=== PATIENT | female | born 1980 | race Caucasian/White ===

== ENCOUNTER 2018-06-30 22:58 | Emergency (ER) | payer OTHER ==
[~2018-06-30] VITALS: Ht 167.6 cm; Wt 68.2 kg
[2018-06-30 23:04] VITALS: TEMP 97.8
[2018-06-30] MEDS ORDERED: CYMBALTA 20MG20 MG PO (23:46)
[2018-07-01 00:20] VITALS: BP 140/99; PULSE 75
== END 2018-07-01 00:24 | disposition home or self-care (01) ==
LOC: COL.ER 22:58
DX: S43.401A Unspecified sprain of right shoulder joint, initial encounter (principal); W01.0XXA Fall on same level from slipping, tripping and stumbling without subsequent striking against object, initial encounter; Y92.009 Unspecified place in unspecified non-institutional (private) residence as the place of occurrence of the external cause
CPT/HCPCS: J1885

== ENCOUNTER 2018-10-21 03:22 | Emergency (ER) | payer OTHER ==
[~2018-10-21] VITALS: Ht 167.6 cm; Wt 77.3 kg
[~2018-10-21 03:22] MED LIST: CYMBALTA 20MG20 MG PO
[2018-10-21 03:25] VITALS: BP 163/103; PULSE 118; TEMP 97.5
[2018-10-21] MEDS ORDERED: VIIBRYD40 MG PO (03:45)
[2018-10-21] MEDS ORDERED: ADDERALL20 MG PO (03:45)
[2018-10-21 03:46] LABS: COLLECTION METHOD CLEAN CATCH
[2018-10-21 03:48] LABS: BASO % 0.5 % (0.0-2.0); EOS # 0.3 (0.0-0.7); EOS % 4.3 % (0-4.0); GRAN # 3.5 (1.4-6.5); HEMOGLOBIN 11.3 g/dl (12.5-16.0); LYMPH # 1.8 (1.2-3.4); LYMPH % 29.2 % (20.0-51.0); MEAN CELL VOLUME 91 fl (80.0-100.0); MEAN CORPUSCULAR HEMOGLOBIN 29 pg (27.0-31.0); MEAN CORPUSCULAR HGB CONC 31 g/dl (33.0-37.0); MEAN PLATELET VOLUME 10.5 fl (7.4-10.4); MONO # 0.5 (0.1-0.6); MONO % 8.7 % (1.7-9.3); PLATELET COUNT 301 K/mm3 (130-400); RED BLOOD COUNT 3.97 M/mm3 (4.10-5.30); REDCELL DISTRIBUTION WIDTH-CV 13.1 % (11.5-14.5)
[2018-10-21 03:59] LABS: MUCOUS Present /lpf; PH 5 (5-8); URINE APPEARANCE Hazy; URINE BACTERIA None Seen /hpf; URINE BILIRUBIN Negative (NEGATIVE); URINE BLOOD 3+ (NEGATIVE); URINE COLOR Yellow; URINE GLUCOSE Negative (NEGATIVE); URINE KETONE Trace (NEGATIVE); URINE LEUKOCYTE ESTERASE Negative (NEGATIVE); URINE NITRATE Negative (NEGATIVE); URINE PROTEIN(semi-quant) 2+ (NEGATIVE); URINE RBC >50 /hpf; URINE UROBILINOGEN Negative (NEGATIVE)
[2018-10-21 04:06] LABS: ALBUMIN 3.7 gm/dL (3.5-5.0); BILIRUBIN,TOTAL 0.3 mg/dL (0.0-1.0); CALCIUM 8.8 mg/dL (8.4-10.2); CREATININE, serum 0.68 (0.52-1.25); POTASSIUM 3.7 mmol/L (3.4-5.0); TOTAL PROTEIN 6.8 gm/dL (6.4-8.2)
== END 2018-10-21 09:56 | disposition home or self-care (01) ==
LOC: COL.ER 03:22
PROVIDERS: Emergency Medicine
DX: R10.11 Right upper quadrant pain (principal); Z98.84 Bariatric surgery status; Z98.890 Other specified postprocedural states
CPT/HCPCS: J1170; J1885; J2550; J7030; Q9967

== ENCOUNTER 2019-07-08 10:03 | Inpatient (IN) | payer OTHER ==
[2019-07-08] VITALS (7 sets, daily range): BP systolic 111–134; BP diastolic 86–98; PULSE 82–103; TEMP 97.5–98.2
[~2019-07-08] VITALS: Ht 167.6 cm; Wt 82.9 kg
[~2019-07-08 10:03] MED LIST changes: +ADDERALL20 MG PO; +VIIBRYD40 MG PO
[2019-07-08 10:54] LABS: ALANINE AMINOTRANSFERASE 46 U/L (9-52); ALBUMIN 3.1 gm/dL (3.5-5.0); ALKALINE PHOSPHATASE 79 U/L (50-136); ANION GAP 7 mmol/L (7-16); AST,SGOT 39 U/L (15-37); BILIRUBIN,TOTAL 0.3 mg/dL (0.0-1.0); BLOOD UREA NITROGEN 25 mg/dL (7-17); CALCIUM 7.7 mg/dL (8.4-10.2); CARBON DIOXIDE 28 mmol/L (22-30); CHLORIDE 103 mmol/L (98-107); CREATININE, serum 0.43 (0.52-1.25); GLUCOSE 135 mg/dL (74-106); LIPASE 151 U/L (23-300); POTASSIUM 3.2 mmol/L (3.4-5.0); SODIUM 138 mmol/L (137-145); TOTAL PROTEIN 5.4 gm/dL (6.4-8.2)
[2019-07-08 10:55] LABS: BASO # 0.1 (0.0-0.2); BASO % 0.5 % (0.0-2.0); EOS # 0.4 (0.0-0.7); EOS % 3.4 % (0-4.0); GRAN % 73.4 % (42.2-75.2); HEMATOCRIT 24.3 % (37.0-47.0); HEMOGLOBIN 7.4 g/dl (12.5-16.0); LYMPH # 1.9 (1.2-3.4); MEAN CELL VOLUME 85 fl (80.0-100.0); MEAN CORPUSCULAR HEMOGLOBIN 26 pg (27.0-31.0); MEAN CORPUSCULAR HGB CONC 31 g/dl (33.0-37.0); MEAN PLATELET VOLUME 10.6 fl (7.4-10.4); MONO # 0.6 (0.1-0.6); MONO % 5.3 % (1.7-9.3); PLATELET COUNT 364 K/mm3 (130-400); RED BLOOD COUNT 2.85 M/mm3 (4.10-5.30); REDCELL DISTRIBUTION WIDTH-CV 22.5 % (11.5-14.5)
[2019-07-08 11:06] LABS: TROPONIN-I < 0.012 ng/mL (0.000-0.035)
[2019-07-08] MEDS ORDERED: CYMBALTA 60MG60 MG PO (12:35)
[2019-07-08] MEDS ORDERED: PROTONIX 40MG T40 MG PO (12:36)
[2019-07-08 13:51] LABS: COLLECTION METHOD CLEAN CATCH
[2019-07-08 13:58] LABS: PH 7 (5-8); SQUAMOUS EPITHELIAL 0-2 /hpf; URINE APPEARANCE Clear; URINE BACTERIA None Seen /hpf; URINE BILIRUBIN Negative (NEGATIVE); URINE BLOOD 1+ (NEGATIVE); URINE COLOR Colorless; URINE GLUCOSE Negative (NEGATIVE); URINE KETONE 1+ (NEGATIVE); URINE LEUKOCYTE ESTERASE Negative (NEGATIVE); URINE NITRATE Negative (NEGATIVE); URINE PROTEIN(semi-quant) Negative (NEGATIVE); URINE UROBILINOGEN Negative (NEGATIVE)
--- NOTE | 2019-07-08 14:04 | NUR ---
Report recieved from shoe repairer apprentice Paula. MD Artem notified that pt had bleeding jejunum ulcer with 3 clips, pt orthostatic dizziness, and severe abdominal pain. Hospitalist team will round on pt as soon as they are able
--- NOTE | 2019-07-08 14:15 | NUR ---
Pt here with Endo RNs, pt AAOx4, transfered self from cart to IMCU bed without difficulty, VSS, automated vitals q15, pt rating abdominal pain as "much better than before", pt denied needing pain medication at this time. 1440 NESTOR Guan in room assessing pt
[2019-07-08 16:06] LABS: HEMATOCRIT 24.5 % (37.0-47.0); HEMOGLOBIN 7.7 g/dl (12.5-16.0)
[2019-07-09] VITALS (7 sets, daily range): BP systolic 105–134; BP diastolic 70–88; PULSE 76–96; TEMP 97.9–98.7
[2019-07-09 06:42] LABS: BASO % 0.4 % (0.0-2.0); EOS # 0.6 (0.0-0.7); EOS % 7.5 % (0-4.0); GRAN # 4.5 (1.4-6.5); GRAN % 60.9 % (42.2-75.2); MEAN CORPUSCULAR HGB CONC 30 g/dl (33.0-37.0); MEAN PLATELET VOLUME 10.6 fl (7.4-10.4); MONO # 0.3 (0.1-0.6); MONO % 3.9 % (1.7-9.3); RED BLOOD COUNT 2.71 M/mm3 (4.10-5.30); REDCELL DISTRIBUTION WIDTH-CV 21.3 % (11.5-14.5)
[2019-07-09 06:45] LABS: HEMATOCRIT 24.8 % (37.0-47.0); HEMOGLOBIN 7.5 g/dl (12.5-16.0); MEAN CELL VOLUME 92 fl (80.0-100.0); MEAN CORPUSCULAR HEMOGLOBIN 28 pg (27.0-31.0)
[2019-07-09 06:46] LABS: PLATELET COUNT 238 K/mm3 (130-400)
[2019-07-09 06:55] LABS: CALCIUM 7.6 mg/dL (8.4-10.2); CREATININE, serum 0.45 (0.52-1.25); POTASSIUM 3.7 mmol/L (3.4-5.0)
--- NOTE | 2019-07-09 08:00 | NUR ---
Shift assessment complete at this time. Plan of care reviewed at bedside with patient. Additional time taken to address any other needs or concerns. Vitals stable at this time. Pt reports moderate abdominal pain that is cramp-like in nature and requests the next dose of analgesic when it is available. Bed in low position, call light within reach, will continue to monitor.
--- NOTE | 2019-07-09 17:00 | NUR ---
Pt reports pain to lower abd increased to 6 out of 10 and radiating around to left flank. PRN pain medication administered, 1 tab at this time then pt will want a second tab when family arrives. IV removed from left hand per pt's request. Saline lock IV to right AC without s/s of complications. No further needs reported. Call light in reach.
--- NOTE | 2019-07-09 19:45 | NUR ---
Patient assessed at this time. Alert and oriented x 4, and able to make needs known. Denies having pain and discomfort at this time. Denies SOB and dyspnea. LS CTA. Respirations even and unlabored. HRR. Capillary refill less than 3 seconds. Non-tenting skin turgor. BSAx4. Abdomen soft and non-tender. Reports still having dark bloody stools, but decreasing. Denies pain and discomfort with urination. No edema. Voices no questions, needs, or concerns at this time. Resting in bed with call light within reach.
[2019-07-10] VITALS (14 sets, daily range): BP systolic 120–142; BP diastolic 53–98; PULSE 86–105; TEMP 97.9–98.5
--- NOTE | 2019-07-10 05:02 | NUR ---
Patient has had an uneventful night. Has denied having pain and discomfort. Voices no questions, needs, or concerns at this time. Resting in bed with call light within reach.
--- NOTE | 2019-07-10 05:56 | NUR ---
Patient reports pain at a 5 at this time, but denies wanting any pain medication. Voices no questions, needs, or concerns at this time.
[2019-07-10 06:26] LABS: BASO % 0.5 % (0.0-2.0); EOS # 0.5 (0.0-0.7); EOS % 8.4 % (0-4.0); GRAN % 68.4 % (42.2-75.2); LYMPH % 17.9 % (20.0-51.0); MEAN CELL VOLUME 90 fl (80.0-100.0); MEAN CORPUSCULAR HGB CONC 31 g/dl (33.0-37.0); MEAN PLATELET VOLUME 10.6 fl (7.4-10.4); MONO # 0.3 (0.1-0.6); MONO % 4.5 % (1.7-9.3); PLATELET COUNT 214 K/mm3 (130-400); RED BLOOD COUNT 2.31 M/mm3 (4.10-5.30); REDCELL DISTRIBUTION WIDTH-CV 21.6 % (11.5-14.5)
[2019-07-10 06:37] LABS: CALCIUM 7.5 mg/dL (8.4-10.2); CREATININE, serum 0.39 (0.52-1.25); MAGNESIUM 1.7 mg/dL (1.6-2.3); POTASSIUM 3.5 mmol/L (3.4-5.0)
[2019-07-10 06:41] LABS: HEMATOCRIT 20.8 % (37.0-47.0); HEMOGLOBIN 6.4 g/dl (12.5-16.0); MEAN CORPUSCULAR HEMOGLOBIN 28 pg (27.0-31.0)
--- NOTE | 2019-07-10 07:20 | NUR ---
Assessment charted. Patient A&Ox4. Reporting in abdomen 10/26. Pain medication requested. VSS. IV CDI. No further needs expressed from patient. Call light within reach
--- NOTE | 2019-07-10 09:33 | NUR ---
Transfusion started. VSS. VS monitored at bedside. IV CDI. No further needs expressed from patient. Call light within reach. Nurse at the bedside
--- NOTE | 2019-07-10 12:09 | NUR ---
Transfused 1 unit. VSS. IV CDI. Patient tolerated transfusion well. No further needs expressed from patient. 2nd unit transfusing. Nurse at the bedside. Call light within reach
--- NOTE | 2019-07-10 13:07 | NUR ---
Plan is to return home with spouse Akhil and thier children. Patient reports that she wants to go home after care. Patient reports that she has a PCP on [place] but it recently change but does not know who. Patient reports taht she obtains medications at [facility]. Patient denies having POA. Unknown on additonals. SE education on supports and services need.
--- NOTE | 2019-07-10 14:43 | NUR ---
Transfusion complete. Patient tolerated well. VSS. VS monitored at bedside. IV CDI. No further needs expressed from patient. Call light within reach
[2019-07-10] MEDS ORDERED: PROTONIX40 MG/Pack PO (14:52)
[2019-07-10] MEDS ORDERED: SLOW FE142 MG PO (14:52)
[2019-07-10 17:42] LABS: HEMATOCRIT 28.3 % (37.0-47.0); HEMOGLOBIN 9.3 g/dl (12.5-16.0)
--- NOTE | 2019-07-10 18:31 | NUR ---
Patient received 2 units of blood and tolerated well. Has been emotional and crying in room, wanting to go home. VSS. IV CDI. Reported pain in lower abdomen, pain medication given when requested. Patient reporting pain with eating, requested a full liquid diet. Patient scheduled for proceudre in the morning 07/11. Patient verbalized an understanding. No further needs expressed from patient. Call light within reach
--- NOTE | 2019-07-10 20:49 | NUR ---
Received report from LILIANA Wong. Assessment complete. PT laying in bed resting, states feeling tired. Alert and oriented. Easily aroused. Meds adminsitered. C/O pain to abdomen, rate 5/10, pain is tolerable. INT to RAC intact, flushed, dressing CDI. Dinner tray remains at bedside, pt states she will continue to work on it throughout the night before midnight. POC discussed with pt, pt understands NPO status after midnight. Refused SCD.
[2019-07-11] VITALS (9 sets, daily range): BP systolic 132–153; BP diastolic 98–117; PULSE 87–96; TEMP 97.9–98.6
--- NOTE | 2019-07-11 06:04 | NUR ---
Pt made no complaints during this shift. Pt in clean gown, preop checklist completed, consent signed, fluids started, pt states no need to void, has been NPO since midnight. Needs met. Call light within reach.
[2019-07-11 06:42] LABS: HEMOGLOBIN 9.5 g/dl (12.5-16.0)
--- NOTE | 2019-07-11 06:54 | NUR ---
Report given to LILIANA Elder.
[2019-07-11 06:59] LABS: CALCIUM 7.9 mg/dL (8.4-10.2); CREATININE, serum 0.38 (0.52-1.25); PHOSPHOROUS 3.1 mg/dL (2.5-4.5); POTASSIUM 3.6 mmol/L (3.4-5.0)
[2019-07-11 07:18] LABS: IRON,SERUM 21 ug/dL (35-150)
[2019-07-11 07:27] LABS: TOTAL IRON BINDING CAPACITY 390 ug/dL (265-497)
--- NOTE | 2019-07-11 08:15 | NUR ---
PATIENT RETURNS FROM EGD. VITALS SET UP. SHE DENIES PAIN. WATER IS PROVIDED.
[2019-07-11] MEDS ORDERED: NORVASC 5MG5 MG/TAB PO (09:11)
--- NOTE | 2019-07-11 09:45 | NUR ---
PATIENT DISCHARGED TO HOME WITH PAPERWORK. SHE DENIES ANY QUESTIONS. NOTHING IN LOCK UP. HERE TO TAKE HER HOME. DISCHARGE VIA PEDIS.
== END 2019-07-11 09:45 | disposition home or self-care (01) | DRG 378 ==
LOC: COL.ER 10:03 → MEDICAL 11:22 → IMCU 11:22 → MEDICAL 07-09 11:47
PROVIDERS: Emergency Medicine; Family Medicine; Internal Medicine Gastroenterology; Physician Assistant; ADMIT Internal Medicine
PROC: 3E0G8GC Introduction of Other Therapeutic Substance into Upper GI, Via Natural or Artificial Opening Endoscopic (ICD-10-PCS; 2019-07-08)
PROC: 0W3P8ZZ Control Bleeding in Gastrointestinal Tract, Via Natural or Artificial Opening Endoscopic (ICD-10-PCS; principal; 2019-07-08 13:30)
DX: K28.0 Acute gastrojejunal ulcer with hemorrhage (principal); D62 Acute posthemorrhagic anemia; N20.1 Calculus of ureter; F32.9 Major depressive disorder, single episode, unspecified; F90.9 Attention-deficit hyperactivity disorder, unspecified type; E87.6 Hypokalemia; E83.42 Hypomagnesemia; Z98.84 Bariatric surgery status
CPT/HCPCS: 99223-AI; 99232-AI; 99239; A4216; C9113; J0171; J0696; J2250; J2270; J2405; J2704; J3010; J3475; J3480; J7030; P9016; Q9967

== ENCOUNTER 2019-07-13 07:06 | Day surgery (SDC) | payer OTHER ==
[~2019-07-13] VITALS: Ht 167.6 cm; Wt 76.3 kg
[~2019-07-13 07:06] MED LIST changes: +CYMBALTA 60MG60 MG PO; +NORVASC 5MG5 MG/TAB PO; +PROTONIX 40MG T40 MG PO; +PROTONIX40 MG/Pack PO; +SLOW FE142 MG PO
[2019-07-13] MEDS ORDERED: PROTONIX40 MG/Pack PO (07:28)
[2019-07-13] MEDS ORDERED: NORVASC 5MG5 MG/TAB PO (07:28)
[2019-07-13 07:36] VITALS: BP 132/86; PULSE 103; TEMP 97.9
[2019-07-13 07:50] LABS: HEMATOCRIT 34.6 % (37.0-47.0); HEMOGLOBIN 11.5 g/dl (12.5-16.0)
[2019-07-13 10:30] VITALS: BP 122/79; PULSE 104; TEMP 98
--- NOTE | 2019-07-13 10:30 | NUR ---
The patient arrived back to [facility] from the recovery room at this time. The patient appears alert and oriented and denies any pain or nausea at this time. The patient requests to try some ice water at this time. Post operative vital signs were started at this time. Call light is within reach. The patient does not have anyone here with her at this time, she is going to text a friend when she is ready for discharge.
[2019-07-13 10:45] VITALS: BP 127/83; PULSE 104
--- NOTE | 2019-07-13 10:45 | NUR ---
The patient appears to be tolerating the water well and denies wanting anything further to eat or drink at this time. Vital signs appear stable. Will continue to monitor the patient.
[2019-07-13 11:00] VITALS: BP 129/84; PULSE 98
--- NOTE | 2019-07-13 11:15 | NUR ---
Discharge instructions were reviewed with the patient at this time. She verbalized understanding and has no questions for the nurse at this time. The patient's IV to her right forearm was removed and a pressure dressing was applied to the site. The patient is dressed and ready to be escorted out.
--- NOTE | 2019-07-13 11:23 | NUR ---
The patient was escorted out via wheelchair to a private vehicle by LILIANA Williamson. The patient's belongings and discharge paperwork were sent with her. The patient's friend, Kim, is present to drive her home.
== END 2019-07-13 11:23 | disposition home or self-care (01) ==
LOC: SDCO 07:06
PROVIDERS: Nurse Anesthetist, Certified Registered
DX: N20.1 Calculus of ureter (principal); I10 Essential (primary) hypertension; F32.9 Major depressive disorder, single episode, unspecified; F90.9 Attention-deficit hyperactivity disorder, unspecified type; D64.9 Anemia, unspecified; Z88.1 Allergy status to other antibiotic agents; Z79.899 Other long term (current) drug therapy
CPT/HCPCS: C1769; C2617; J0690; J1100; J2405; J2704; J3010; J7120; Q9967

== ENCOUNTER 2019-11-21 14:38 | Inpatient (IN) | payer OTHER ==
[~2019-11-21] VITALS: Ht 167.6 cm; Wt 76.1 kg
[2019-11-21 16:12] LABS: POTASSIUM 3.2 mmol/L (3.4-5.0)
[2019-11-21 16:15] LABS: ALANINE AMINOTRANSFERASE 308 U/L (4-34); ALBUMIN 4.1 gm/dL (3.5-5.0); ALKALINE PHOSPHATASE 191 U/L (50-136); ANION GAP 15 mmol/L (7-16); AST,SGOT 717 U/L (15-37); BILIRUBIN,TOTAL 2.2 mg/dL (0.0-1.0); BLOOD UREA NITROGEN 15 mg/dL (7-17); CALCIUM 8.4 mg/dL (8.4-10.2); CARBON DIOXIDE 21 mmol/L (22-30); CHLORIDE 100 mmol/L (98-107); CREATININE, serum 0.65 (0.52-1.25); GLUCOSE 88 mg/dL (74-106); LIPASE 545 U/L (23-300); SODIUM 136 mmol/L (137-145); TOTAL PROTEIN 7.2 gm/dL (6.4-8.2)
[2019-11-21 16:19] LABS: C-REACTIVE PROTEIN < 0.5 mg/dL (0.0-0.9)
[2019-11-21 16:29] LABS: BASO % 1.1 % (0.0-2.0); EOS # 0.1 (0.0-0.7); EOS % 1.6 % (0-4.0); GRAN # 2.4 (1.4-6.5); GRAN % 63.3 % (42.2-75.2); LYMPH # 0.9 (1.2-3.4); LYMPH % 24.8 % (20.0-51.0); MEAN CELL VOLUME 90 fl (80.0-100.0); MEAN CORPUSCULAR HGB CONC 32 g/dl (33.0-37.0); MEAN PLATELET VOLUME 11.1 fl (7.4-10.4); MONO # 0.3 (0.1-0.6); MONO % 8.4 % (1.7-9.3); PLATELET COUNT 195 K/mm3 (130-400); RED BLOOD COUNT 2.89 M/mm3 (4.10-5.30); REDCELL DISTRIBUTION WIDTH-CV 22.5 % (11.5-14.5)
[2019-11-21 16:36] LABS: HEMATOCRIT 25.9 % (37.0-47.0); HEMOGLOBIN 8.3 g/dl (12.5-16.0); MEAN CORPUSCULAR HEMOGLOBIN 29 pg (27.0-31.0)
[2019-11-21 20:12] VITALS: BP 120/62; PULSE 102; TEMP 98.8
[2019-11-21 20:16] VITALS: BP 120/62; PULSE 102; TEMP 98.8
--- NOTE | 2019-11-21 20:35 | NUR ---
Pt. arrived to the floor via wheelchair. Pt. is A&OX3, assessment complete.IV to lt. forearm patent, IV fluids infusing per orders. Pt. rates pain at a 5 on pain scale to abd. Will give pain meds per orders. Pt. denies further needs, call light within reach.
[2019-11-21 20:41] LABS: INR 1.3 (0.8-3.0); PROTHROMBIN TIME 14.1 SECONDS (9.7-12.8)
[2019-11-21 23:12] VITALS: BP 132/96; PULSE 113; TEMP 98.3
[2019-11-21 23:42] LABS: HEMATOCRIT 24.1 % (37.0-47.0); HEMOGLOBIN 7.7 g/dl (12.5-16.0)
[2019-11-22] VITALS (10 sets, daily range): BP systolic 114–132; BP diastolic 70–89; PULSE 77–106; TEMP 97.5–99.1
[2019-11-22 04:24] LABS: TRICYCLIC ANTIDEPRESS URINE NEGATIVE
--- NOTE | 2019-11-22 07:00 | NUR ---
PATIENT VERY DROWSY AND DID NOT EASILY AROUSE. PATIENT WAS GIVEN ATIVAN BY LEHR STRIPPER FROM DETOX PROTOCOL. PATIENT HAS A HX OF ALCOHOL ABUSE AND INCREASED DEPRESSION. SEE PSYCH CONSULT. VSS. TELE INPLACE. HEAD TO TOE ASSESSMENT COMPLETE. PATIENT SLEPT THROUGH ASSESSMENT. PATIENT WILL REQUIRE MORE IV POTASSIUM FOR A SERUM K+ OF 3.5 WHICH IS UP FROM 3.2. PATIENT IS NPO FOR EGD THIS AM.
[2019-11-22 07:14] LABS: EOS # 0.1 (0.0-0.7); EOS % 4.6 % (0-4.0); GRAN # 1.6 (1.4-6.5); GRAN % 53.5 % (42.2-75.2); LYMPH % 32.6 % (20.0-51.0); MEAN CELL VOLUME 93 fl (80.0-100.0); MEAN CORPUSCULAR HGB CONC 30 g/dl (33.0-37.0); MEAN PLATELET VOLUME 11.1 fl (7.4-10.4); MONO # 0.2 (0.1-0.6); MONO % 7.6 % (1.7-9.3); PLATELET COUNT 179 K/mm3 (130-400); RED BLOOD COUNT 2.66 M/mm3 (4.10-5.30); REDCELL DISTRIBUTION WIDTH-CV 23.2 % (11.5-14.5)
[2019-11-22 07:24] LABS: HEMATOCRIT 24.7 % (37.0-47.0); HEMOGLOBIN 7.5 g/dl (12.5-16.0); MEAN CORPUSCULAR HEMOGLOBIN 28 pg (27.0-31.0)
[2019-11-22 07:30] LABS: ALBUMIN 3.3 gm/dL (3.5-5.0); BILIRUBIN,TOTAL 1.7 mg/dL (0.0-1.0); CALCIUM 7.1 mg/dL (8.4-10.2); CREATININE, serum 0.59 (0.52-1.25); MAGNESIUM 1.3 mg/dL (1.6-2.3); POTASSIUM 3.5 mmol/L (3.4-5.0)
--- NOTE | 2019-11-22 08:45 | NUR ---
AT BEDSIDE. PATIENT NOW EASILY AROUSED BUT IS SLEEPY. CONSENT SIGNED AND ON CHART.
--- NOTE | 2019-11-22 10:30 | NUR ---
PATIENT GOING DOWN TO ENDO
--- NOTE | 2019-11-22 11:20 | NUR ---
PATIENT BACK IN ROOM 323 POST OP EGD. ORIENTED BUT DROWSY. VSS. NO C/O PAIN. PATIENT RESTING
--- NOTE | 2019-11-22 12:30 | NUR ---
AT BEDSIDE TO EXPLAIN EGD FINDING.
--- NOTE | 2019-11-22 14:18 | NUR ---
Comfort Station Supervisor met with patient to discuss discharge planning. Patient lives in [place] with her Akhil (ph#[phone]) and her two children. Patient receives primary care at [facility]. Patient obtains medications from [facility] with no difficulties. Patient does not use any DME and reports independence with ADLS. Patient plans to return home at discharge. Patient does not have Advance Directives but was interested in obtaining the form for DPOA-HC. SW provided. No needs identified at this time.
--- NOTE | 2019-11-22 16:00 | NUR ---
PATIENT UP MOVING AROUND IN ROOM. HR ON TELE IN THE 120-130'S WITH ACTIVITY. PATIENT C/O FEELING ANXIOUS. NOTED HAND TREMORS. GAVE ATIVAN PER DETOX PROTOCOL. PATIENT RESTING IN BED.
[2019-11-22 17:44] LABS: HEMATOCRIT 24.7 % (37.0-47.0); HEMOGLOBIN 7.7 g/dl (12.5-16.0)
--- NOTE | 2019-11-22 21:15 | NUR ---
PT SCORES 5 ON DETOX SCALE, ATIVAN 1MG PO GIVEN NOW. HAS SLIGHT TREMOR, MILD NAUSEA AND TACHYCARDIA. HAS HAD MOD SOFT STOOL. IVF CONNECTED AT 125CC/HR TO LEFT FOREARM. VOIDING WELL. IS ALERT AND ORIENTED. TAKES HS MEDS NOW.
[2019-11-23] VITALS (10 sets, daily range): BP systolic 112–141; BP diastolic 72–103; PULSE 64–115; TEMP 97.8–98.9
--- NOTE | 2019-11-23 00:53 | NUR ---
MEDICATED WITH ATIVAN 1MG PO FOR DETOX SCORE 4. RESTING IN BED. UP INDEPENDENTLY IN ROOM, VOIDING WITHOUT PROBLEM.
--- NOTE | 2019-11-23 04:00 | NUR ---
PT RESTING WELL, SCORES 2 ON DETOX SCALE AT THIS TIME.
[2019-11-23 07:38] LABS: EOS # 0.1 (0.0-0.7); EOS % 3.7 % (0-4.0); GRAN # 2.1 (1.4-6.5); GRAN % 71.6 % (42.2-75.2); LYMPH # 0.5 (1.2-3.4); MEAN CELL VOLUME 95 fl (80.0-100.0); MEAN CORPUSCULAR HGB CONC 32 g/dl (33.0-37.0); MEAN PLATELET VOLUME 10.8 fl (7.4-10.4); MONO # 0.2 (0.1-0.6); MONO % 5.4 % (1.7-9.3); PLATELET COUNT 185 K/mm3 (130-400); RED BLOOD COUNT 2.54 M/mm3 (4.10-5.30); REDCELL DISTRIBUTION WIDTH-CV 23.7 % (11.5-14.5)
[2019-11-23 07:43] LABS: HEMATOCRIT 24.1 % (37.0-47.0); HEMOGLOBIN 7.6 g/dl (12.5-16.0); MEAN CORPUSCULAR HEMOGLOBIN 30 pg (27.0-31.0)
[2019-11-23 07:50] LABS: CALCIUM 6.9 mg/dL (8.4-10.2); CREATININE, serum 0.41 (0.52-1.25); POTASSIUM 3.5 mmol/L (3.4-5.0)
[2019-11-23] MEDS ORDERED: CYMBALTA 30MG30 MG PO ×2 (09:05)
[2019-11-23] MEDS ORDERED: EFFEXOR XR75 MG/CAP PO ×2 (09:08)
[2019-11-23] MEDS ORDERED: EFFEXOR-XR150 MG PO (09:09)
[2019-11-23] MEDS ORDERED: ATARAX50 MG PO (09:09)
[2019-11-23] MEDS ORDERED: ATARAX 25MG25 MG/TAB PO (09:10)
[2019-11-23] MEDS ORDERED: FOLIC ACID 11 MG/TA1 PO (09:12)
[2019-11-23] MEDS ORDERED: THIAMINE 1100 MG/TAB PO (09:12)
[2019-11-23] MEDS ORDERED: DUO-KAPS1 CAP PO (09:13)
[2019-11-23] MEDS ORDERED: PROTONIX40 MG/Pack PO (09:19)
[2019-11-23] MEDS ORDERED: LIBRIUM 25M25 MG/CAP PO ×2 (09:37)
--- NOTE | 2019-11-23 16:28 | NUR ---
Travel Service Consultant met with patient to provide and review local resources for alcohol abuse. Patient was interested in setting up an appointment at [facility] for outpatient counseling. SW contacted [facility] and left a message for the patient coordinator. SW will continue to follow.
--- NOTE | 2019-11-23 18:53 | NUR ---
REPORT TO ELVIE FORD.
--- NOTE | 2019-11-23 20:45 | NUR ---
Pt. laying in bed. Pt. is A&OX3, assessment complete. IV to lt. forearm patent, IV fluids infusing per orders. Pt. scored a 5 on Detox protocol, will give ativan per orders. Pt. denies pain or other needs, call light within reach.
[2019-11-24 04:39] VITALS: BP 136/95; PULSE 116; TEMP 98.3
--- NOTE | 2019-11-24 07:40 | NUR ---
Sitting up in bed. Telemetry had called as patient heart rate was elevated in the 160's. Patient had been up in halls ambulating with PT. Patient says that her heart rate goes up with activity and she is claustrophobic and having the mask on trying to walk is making her anxious. Patient denies pain. Denies needs at this time.
[2019-11-24 07:43] VITALS: BP 135/100; PULSE 119; TEMP 99.5
[2019-11-24 08:12] VITALS: BP 146/105; PULSE 114; TEMP 98.5
[2019-11-24 09:40] VITALS: BP 127/88; PULSE 116; TEMP 98.4
--- NOTE | 2019-11-24 09:48 | NUR ---
Sitting up in bed with eyes closed. Opens eyes when spoken to. Denies pain or any concerns at this time. Is hoping to go home today.
[2019-11-24 10:01] VITALS: BP 142/105; PULSE 117; TEMP 98.4
[2019-11-24 10:06] LABS: ALBUMIN 3.7 gm/dL (3.5-5.0); BILIRUBIN,TOTAL 2.1 mg/dL (0.0-1.0); CALCIUM 7.9 mg/dL (8.4-10.2); CREATININE, serum 0.48 (0.52-1.25); POTASSIUM 3.6 mmol/L (3.4-5.0); TOTAL PROTEIN 6.9 gm/dL (6.4-8.2)
[2019-11-24 11:23] VITALS: BP 128/97; PULSE 115; TEMP 99.1
--- NOTE | 2019-11-24 12:08 | NUR ---
Reviewed discharge instructions with the patient. Denies questions. Patient signs all discharge paperwork. Discharge packet provided to the patient. Patient's spouse here to pick her up. Will assist patient out to POV via wheelchair at this time.
--- NOTE | 2019-11-24 12:47 | NUR ---
Meterman attended clinical rounds with the team and patient states she is ready to go home today. Patient is still interested in getting connected with [facility] and provided her phone number and email to THUY to provide to [facility]. THUY contacted Anahi, Clinical Locomotive Firer/Fireman and gave referral along with contact information. Anahi advised she will be contacting patient to set up appointment. No additional needs at this time.
== END 2019-11-24 12:12 | disposition home or self-care (01) | DRG 378 ==
LOC: COL.ER 14:38 → SURG 18:24
PROVIDERS: Emergency Medicine; Internal Medicine; Internal Medicine Gastroenterology; Physician Assistant; Student in an Organized Health Care Education/Training Program; ADMIT Hospitalist
PROC: 0DJ08ZZ Inspection of Upper Intestinal Tract, Via Natural or Artificial Opening Endoscopic (ICD-10-PCS; principal; 2019-11-22 10:00)
DX: K29.21 Alcoholic gastritis with bleeding (principal); F10.94 Alcohol use, unspecified with alcohol-induced mood disorder; E87.6 Hypokalemia; E83.42 Hypomagnesemia; K28.4 Chronic or unspecified gastrojejunal ulcer with hemorrhage; F41.9 Anxiety disorder, unspecified; F32.9 Major depressive disorder, single episode, unspecified; F90.9 Attention-deficit hyperactivity disorder, unspecified type; I10 Essential (primary) hypertension; F41.0 Panic disorder [episodic paroxysmal anxiety]; D50.0 Iron deficiency anemia secondary to blood loss (chronic); G47.00 Insomnia, unspecified; Z87.11 Personal history of peptic ulcer disease; Z98.84 Bariatric surgery status
CPT/HCPCS: 99222-AI; 99223-AI; 99232-AI; 99233-AI; 99239; C9113; J2060; J2270; J2405; J2704; J2916; J3475; J3480; J7030; Q9967

== ENCOUNTER → 2019-12-14 | Outpatient (CLI) | payer OTHER ==
[~2019-12-14] MED LIST changes: +ATARAX 25MG25 MG/TAB PO; +ATARAX50 MG PO; +CYMBALTA 30MG30 MG PO; +DUO-KAPS1 CAP PO; +EFFEXOR XR75 MG/CAP PO; +EFFEXOR-XR150 MG PO; +FOLIC ACID 11 MG/TA1 PO; +LIBRIUM 25M25 MG/CAP PO; +THIAMINE 1100 MG/TAB PO
== END ==
LOC: BHSO 12:56
DX: F33.1 Major depressive disorder, recurrent, moderate (principal)

== ENCOUNTER 2019-12-20 08:13 | Inpatient (IN) | payer OTHER ==
[~2019-12-20] VITALS: Ht 167.6 cm; Wt 75.5 kg
[2019-12-20] VITALS (312 sets, daily range): BP systolic 94–127; BP diastolic 58–98; PULSE 82–115; TEMP 97.2–99.6; O2SAT 77–100
[2019-12-20 09:03] LABS: MEAN CELL VOLUME 94 fl (80.0-100.0); MEAN CORPUSCULAR HGB CONC 33 g/dl (33.0-37.0); MEAN PLATELET VOLUME 11.6 fl (7.4-10.4); PLATELET COUNT 135 K/mm3 (130-400); RED BLOOD COUNT 2.55 M/mm3 (4.10-5.30); REDCELL DISTRIBUTION WIDTH-CV 19.9 % (11.5-14.5)
[2019-12-20 09:06] LABS: HEMOGLOBIN 7.9 g/dl (12.5-16.0); MEAN CORPUSCULAR HEMOGLOBIN 31 pg (27.0-31.0)
[2019-12-20 09:24] LABS: ALBUMIN 2.9 gm/dL (3.5-5.0); BILIRUBIN,TOTAL 5.2 mg/dL (0.0-1.0); CALCIUM 7.7 mg/dL (8.4-10.2); CREATININE, serum 0.57 (0.52-1.25); POTASSIUM 3.6 mmol/L (3.4-5.0); TOTAL PROTEIN 5.9 gm/dL (6.4-8.2)
[2019-12-20 10:04] LABS: BAND 4 % (0-10); LYMPHOCYTE 21 % (20.0-51.0); METAMYELOCYTE 1 % (0-0); NEUTROPHILS 70 % (42.0-75.2)
[2019-12-20 10:05] LABS: HYPOCHROMIA 3+; TARGET CELLS 1+
[2019-12-20 10:16] LABS: ACETAMINOPHEN < 10 ug/mL (10-30); ALCOHOL(ethanol),MEDICAL < 10 mg/dL
[2019-12-20 10:34] LABS: INR 1.7 (0.8-3.0); PROTHROMBIN TIME 18.9 SECONDS (9.7-12.8)
[2019-12-20 17:08] LABS: HEMOGLOBIN 5.2 g/dl (12.5-16.0)
[2019-12-20 17:09] LABS: HEMATOCRIT 16.1 % (37.0-47.0)
--- NOTE | 2019-12-20 18:11 | NUR ---
Pt arrived to ICU [address] scan. Pt AAOx4 texting her updates and watching a movie on her cell phone. BP stable, HR 122, SpO2=90-95% on room air, RR stable PRBC ready - ICU charger tester dispatched to pickup PICC to JANE in place both lumens patent
--- NOTE | 2019-12-20 18:35 | NUR ---
MD Liz updated via phone - will be in to assess pt soon
--- NOTE | 2019-12-20 19:20 | NUR ---
Received bedside report from LILIANA Kinsey. Patient reports abdominal pain 8/10; vitals within normal limits. One unit of PRBCs is infusing to the JNAE PICC line at 150 mL/hr; NS is also infusing at 150 mL/hr. Patient tolerating well. Dr. Hill at the bedside. Will continue to monitor.
[2019-12-20 19:37] LABS: CLOSTRIDIUM DIFF A/B NEG; CLOSTRIDIUM DIFF A/B INTERP No C.diff present
[2019-12-21] VITALS (301 sets, daily range): BP systolic 114–121; BP diastolic 80–92; PULSE 83–113; TEMP 97.8–99.3; O2SAT 77–100
[2019-12-21 01:32] LABS: HEMATOCRIT 22.3 % (37.0-47.0)
[2019-12-21 01:33] LABS: HEMOGLOBIN 7.4 g/dl (12.5-16.0)
[2019-12-21 04:55] LABS: BASO % 0.5 % (0.0-2.0); EOS # 0.1 (0.0-0.7); GRAN # 2.6 (1.4-6.5); GRAN % 63.8 % (42.2-75.2); LYMPH % 25.2 % (20.0-51.0); MEAN CELL VOLUME 94 fl (80.0-100.0); MEAN CORPUSCULAR HGB CONC 33 g/dl (33.0-37.0); MEAN PLATELET VOLUME 11.2 fl (7.4-10.4); MONO # 0.3 (0.1-0.6); PLATELET COUNT 109 K/mm3 (130-400); REDCELL DISTRIBUTION WIDTH-CV 19.1 % (11.5-14.5)
[2019-12-21 04:56] LABS: HEMATOCRIT 22.5 % (37.0-47.0); HEMOGLOBIN 7.5 g/dl (12.5-16.0); MEAN CORPUSCULAR HEMOGLOBIN 31 pg (27.0-31.0)
[2019-12-21 05:00] LABS: INR 1.6 (0.8-3.0); PROTHROMBIN TIME 17.5 SECONDS (9.7-12.8)
[2019-12-21 05:05] LABS: ALBUMIN 2.2 gm/dL (3.5-5.0); BILIRUBIN,TOTAL 6.7 mg/dL (0.0-1.0); CALCIUM 6.9 mg/dL (8.4-10.2); CREATININE, serum 0.59 (0.52-1.25); MAGNESIUM 1.3 mg/dL (1.6-2.3); POTASSIUM 3.3 mmol/L (3.4-5.0); TOTAL PROTEIN 4.6 gm/dL (6.4-8.2)
[2019-12-21 06:06] LABS: COLLECTION METHOD CLEAN CATCH
[2019-12-21 06:20] LABS: PH 6 (5-8); SQUAMOUS EPITHELIAL 0-2 /hpf; URINE APPEARANCE Clear; URINE BACTERIA None Seen /hpf; URINE BILIRUBIN Positive (NEGATIVE); URINE BLOOD Negative (NEGATIVE); URINE COLOR Amber; URINE GLUCOSE Negative (NEGATIVE); URINE KETONE Trace (NEGATIVE); URINE LEUKOCYTE ESTERASE Negative (NEGATIVE); URINE NITRATE Negative (NEGATIVE); URINE PROTEIN(semi-quant) 1+ (NEGATIVE); URINE UROBILINOGEN >=4.0 mg/dL (NEGATIVE)
[2019-12-21 08:20] LABS: HEMATOCRIT 22.9 % (37.0-47.0); HEMOGLOBIN 7.5 g/dl (12.5-16.0)
--- NOTE | 2019-12-21 09:26 | NUR ---
THUY met with the patient to discuss discharge plan and re-admit. The patient recently discharged from the hospital, 11/23, and returned back home with her and two children. She reports that things were going well healthwise, but then she started to not feel well again. She reports that she did see her primary care provider and psychiatrist, Dr. Hensley, before being re-admitted. She states that she was suppose to start with a new counselor yesterday, but did not go, due to coming to the ED. She states that she did go to one AA meeting before re-admit and that her drinking has been less than what is previously was. The patient lives in [place] with her , Akhil (ph#[phone]), and two children. She reports independence with ADLs and has a walker available, if needed. The patient receives primary care at [facility]. She could not recall her providers name. She receives her medications at [facility] and reports no difficulties obtaining her meds. The patient does not have advanced directives and she was not interested in completing a DPOA-HC at this time. A referral had been made to [facility] her last admission, for outpatient alcohol treatment. The patient reports that she did not hear from [facility], but would be interested in getting established there. THUY attempted to contact the client relationship executive at [facility]. THUY left them a voicemail. The patient plans to return home with her family upon discharge. The patient is to have an EGD and colonoscopy today. SW to continue to follow.
--- NOTE | 2019-12-21 15:26 | NUR ---
Report received from PACU EGD and Colonoscopy unremarkable, patient is actively bleeding, [place] planning to transfer to .
[2019-12-21 18:10] LABS: HEMATOCRIT 25.2 % (37.0-47.0); HEMOGLOBIN 8.3 g/dl (12.5-16.0)
--- NOTE | 2019-12-21 18:10 | NUR ---
HGB improving, pt sitting up eating supper.
--- NOTE | 2019-12-21 19:20 | NUR ---
Bedside report received from LILIANA Navarrete.
--- NOTE | 2019-12-21 20:00 | NUR ---
Patient sitting up in bed at this time. She is A+Ox4. has complaints of aching abdominal pain rated a 6/10 in her lower abdomen. Assessment complete. No signinicant findings. See shift assessment for details. Patient requests not to have pain medications at this time but will want some later. Patient has no further needs at this time. Will continue to monitor. Call light within reach.
--- NOTE | 2019-12-21 21:45 | NUR ---
EMS arrives at this time to take patient. All belongings gathered and sent with patient.
--- NOTE | 2019-12-21 21:49 | NUR ---
Patient leaves at this time via EMS in stable condition.
--- NOTE | 2019-12-21 21:50 | NUR ---
Called over to Medical ICU at [facility] in [place]. SPoke with LILIANA Ibrahim and report given. Procided call back number if anything further needed.
== END 2019-12-21 21:49 | disposition short-term general hospital (02) | DRG 378 ==
LOC: COL.ER 08:13 → SURG 11:56 → ICU 11:56
PROVIDERS: Emergency Medicine; Internal Medicine Gastroenterology; Physician Assistant; ADMIT Student in an Organized Health Care Education/Training Program
PROC: 02HV33Z Insertion of Infusion Device into Superior Vena Cava, Percutaneous Approach (ICD-10-PCS; principal; 2019-12-20)
PROC: 0DJ08ZZ Inspection of Upper Intestinal Tract, Via Natural or Artificial Opening Endoscopic (ICD-10-PCS; 2019-12-21 14:45)
DX: K92.1 Melena (principal); D61.818 Other pancytopenia; D62 Acute posthemorrhagic anemia; K76.0 Fatty (change of) liver, not elsewhere classified; K70.9 Alcoholic liver disease, unspecified; F10.10 Alcohol abuse, uncomplicated; E87.6 Hypokalemia; E83.42 Hypomagnesemia; F90.9 Attention-deficit hyperactivity disorder, unspecified type; F41.8 Other specified anxiety disorders; R74.8 Abnormal levels of other serum enzymes; R42 Dizziness and giddiness; R00.0 Tachycardia, unspecified; Z88.1 Allergy status to other antibiotic agents; Z98.84 Bariatric surgery status; K52.9 Noninfective gastroenteritis and colitis, unspecified; K28.7 Chronic gastrojejunal ulcer without hemorrhage or perforation
CPT/HCPCS: 99223-AI; 99233-AI; 99239; C1751; C9113; J0696; J2060; J2270; J2704; J3475; J3480; J7030; P9016; Q9967

== ENCOUNTER → 2020-01-21 | Outpatient (CLI) | payer OTHER | LOC: BHSO 09:10 | DX: F41.0 Panic disorder [episodic paroxysmal anxiety] (principal) | CPT/HCPCS: G0463 ==

== ENCOUNTER 2020-02-10 18:22 | Emergency (ER) | payer OTHER ==
[~2020-02-10] VITALS: Ht 167.6 cm; Wt 68.2 kg
[2020-02-10 18:23] VITALS: TEMP 98.5
[2020-02-10 18:38] LABS: BASO # 0.1 (0.0-0.2); BASO % 1.6 % (0.0-2.0); EOS # 0.1 (0.0-0.7); EOS % 2.3 % (0-4.0); GRAN # 2.7 (1.4-6.5); GRAN % 53.3 % (42.2-75.2); HEMOGLOBIN 10.5 g/dl (12.5-16.0); LYMPH % 38.5 % (20.0-51.0); MEAN CELL VOLUME 82 fl (80.0-100.0); MEAN CORPUSCULAR HEMOGLOBIN 26 pg (27.0-31.0); MEAN CORPUSCULAR HGB CONC 31 g/dl (33.0-37.0); MEAN PLATELET VOLUME 9.8 fl (7.4-10.4); MONO # 0.2 (0.1-0.6); MONO % 4.1 % (1.7-9.3); PLATELET COUNT 302 K/mm3 (130-400); RED BLOOD COUNT 4.11 M/mm3 (4.10-5.30); REDCELL DISTRIBUTION WIDTH-CV 18.3 % (11.5-14.5)
[2020-02-10 18:41] LABS: HEMATOCRIT 33.7 % (37.0-47.0)
[2020-02-10 18:53] LABS: ALANINE AMINOTRANSFERASE 125 U/L (4-34); ALBUMIN 4.2 gm/dL (3.5-5.0); ALKALINE PHOSPHATASE 262 U/L (50-136); ANION GAP 14 mmol/L (7-16); AST,SGOT 419 U/L (15-37); BILIRUBIN,TOTAL 0.9 mg/dL (0.0-1.0); BLOOD UREA NITROGEN 5 mg/dL (7-17); CALCIUM 8.5 mg/dL (8.4-10.2); CARBON DIOXIDE 23 mmol/L (22-30); CHLORIDE 107 mmol/L (98-107); CREATINE KINASE 45 U/L (30-135); GLUCOSE 105 mg/dL (74-106); POTASSIUM 4.1 mmol/L (3.4-5.0); SODIUM 144 mmol/L (137-145); TOTAL PROTEIN 7.6 gm/dL (6.4-8.2)
[2020-02-10 18:56] LABS: C-REACTIVE PROTEIN < 0.5 mg/dL (0.0-0.9)
[2020-02-10 18:58] LABS: ALCOHOL(ethanol),MEDICAL 404 mg/dL
[2020-02-10 21:04] LABS: COLLECTION METHOD CLEAN CATCH
[2020-02-10] MEDS ORDERED: ZOFRAN ODT4 MG PO (21:09)
[2020-02-10 21:12] LABS: PH 7 (5-8); SQUAMOUS EPITHELIAL 0-2 /hpf; URINE APPEARANCE Clear; URINE BACTERIA Rare /hpf; URINE BILIRUBIN Negative (NEGATIVE); URINE BLOOD Negative (NEGATIVE); URINE COLOR Yellow; URINE GLUCOSE Negative (NEGATIVE); URINE KETONE Negative (NEGATIVE); URINE LEUKOCYTE ESTERASE Negative (NEGATIVE); URINE NITRATE Negative (NEGATIVE); URINE PROTEIN(semi-quant) Negative (NEGATIVE); URINE RBC 0-2 /hpf; URINE UROBILINOGEN Negative (NEGATIVE)
[2020-02-10 22:02] VITALS: BP 134/100; PULSE 98
== END 2020-02-10 22:03 | disposition home or self-care (01) ==
LOC: COL.ER 18:22
PROVIDERS: Emergency Medicine
DX: U07.1 COVID-19 (principal); F10.229 Alcohol dependence with intoxication, unspecified; F90.9 Attention-deficit hyperactivity disorder, unspecified type; Z32.02 Encounter for pregnancy test, result negative; Z98.84 Bariatric surgery status; Y90.8 Blood alcohol level of 240 mg/100 ml or more; Z88.1 Allergy status to other antibiotic agents
CPT/HCPCS: J1885; J2405; J7030

== ENCOUNTER 2020-02-14 07:43 | Inpatient (IN) | payer OTHER ==
[2020-02-14] VITALS (7 sets, daily range): BP systolic 126–182; BP diastolic 85–122; PULSE 75–132; TEMP 98.2–98.7
[~2020-02-14] VITALS: Ht 165.1 cm; Wt 69.7 kg
[~2020-02-14 07:43] MED LIST changes: +ZOFRAN ODT4 MG PO
[2020-02-14 08:41] LABS: BASO # 0.1 (0.0-0.2); BASO % 1.1 % (0.0-2.0); EOS # 0.1 (0.0-0.7); EOS % 1.5 % (0-4.0); GRAN # 3.4 (1.4-6.5); GRAN % 72.4 % (42.2-75.2); LYMPH # 0.9 (1.2-3.4); LYMPH % 19.1 % (20.0-51.0); MEAN CELL VOLUME 83 fl (80.0-100.0); MEAN CORPUSCULAR HGB CONC 31 g/dl (33.0-37.0); MEAN PLATELET VOLUME 10.5 fl (7.4-10.4); MONO # 0.3 (0.1-0.6); MONO % 5.5 % (1.7-9.3); PLATELET COUNT 148 K/mm3 (130-400); RED BLOOD COUNT 3.59 M/mm3 (4.10-5.30); REDCELL DISTRIBUTION WIDTH-CV 19.3 % (11.5-14.5)
[2020-02-14 08:44] LABS: HEMATOCRIT 29.6 % (37.0-47.0); HEMOGLOBIN 9.3 g/dl (12.5-16.0); MEAN CORPUSCULAR HEMOGLOBIN 26 pg (27.0-31.0)
[2020-02-14 08:53] LABS: ALANINE AMINOTRANSFERASE 119 U/L (4-34); ALBUMIN 4.1 gm/dL (3.5-5.0); ALKALINE PHOSPHATASE 261 U/L (50-136); ANION GAP 9 mmol/L (7-16); AST,SGOT 437 U/L (15-37); BILIRUBIN,TOTAL 1.7 mg/dL (0.0-1.0); BLOOD UREA NITROGEN 5 mg/dL (7-17); CALCIUM 8.7 mg/dL (8.4-10.2); CARBON DIOXIDE 26 mmol/L (22-30); CHLORIDE 98 mmol/L (98-107); CREATININE, serum 0.43 (0.52-1.25); GLUCOSE 104 mg/dL (74-106); LIPASE 662 U/L (23-300); MAGNESIUM 1.1 mg/dL (1.6-2.3); PHOSPHOROUS 4.7 mg/dL (2.5-4.5); SODIUM 133 mmol/L (137-145); TOTAL PROTEIN 7.3 gm/dL (6.4-8.2)
[2020-02-14 08:55] LABS: ALCOHOL(ethanol),MEDICAL < 10 mg/dL
[2020-02-14 09:08] LABS: INR 1.2 (0.8-3.0); PROTHROMBIN TIME 13.4 SECONDS (9.7-12.8)
[2020-02-14 09:11] LABS: PARTIAL THROMBOPLASTIN TIME 30.7 SECONDS (26.0-37.0)
--- NOTE | 2020-02-14 14:09 | NUR ---
Pt arrived in room 306, she is A/O x4. Her breathing is even and unlabored on RA. Pt denies SOB. Her whole body is very shaky, she reports extreme anxiety and is upset she has gotten to this point. She also is reporting visual and auditory hallucinations. She denies that voices are telling to hurt herself. She denies any N/V. Up to the restroom and reports blood clots in her urine. POC discussed with patient who verbalizes understanding. IVF infusing into her L wrist. No needs at this time.
[2020-02-14 14:55] LABS: ARTERIAL BLD GAS O2 SATURATION 96.2 % (92-100); ARTERIAL BLOOD GAS PCO2 32.8 mmHg (35-45); ARTERIAL BLOOD GAS PO2 92.3 mmHg (80-100)
[2020-02-14 15:15] LABS: TRICYCLIC ANTIDEPRESS URINE NEGATIVE
[2020-02-14 16:13] LABS: COLLECTION METHOD CLEAN CATCH
[2020-02-14 16:18] LABS: PH 8 (5-8); SQUAMOUS EPITHELIAL 0-2 /hpf; URINE APPEARANCE Clear; URINE BACTERIA None Seen /hpf; URINE BILIRUBIN Negative (NEGATIVE); URINE BLOOD 3+ (NEGATIVE); URINE COLOR Yellow; URINE GLUCOSE Negative (NEGATIVE); URINE KETONE Negative (NEGATIVE); URINE LEUKOCYTE ESTERASE Negative (NEGATIVE); URINE NITRATE Negative (NEGATIVE); URINE PROTEIN(semi-quant) Negative (NEGATIVE); URINE RBC 0-2 /hpf; URINE UROBILINOGEN Negative (NEGATIVE)
[2020-02-14 16:48] LABS: INR 1.3 (0.8-3.0)
[2020-02-14 16:51] LABS: PARTIAL THROMBOPLASTIN TIME 34.2 SECONDS (26.0-37.0)
--- NOTE | 2020-02-14 18:36 | NUR ---
Pt continues to detox, BP and HR elevated. Has visible tremors, and marked anxiety. Tolerated PO Librium at this time. POC discussed with patient who verbalizes understanding. Fall precautions in place. Will continue to monitor.
--- NOTE | 2020-02-14 18:48 | NUR ---
Clarified with Dr. Canales regarding Negative COVID swab, orders to move out of isolation.
--- NOTE | 2020-02-14 22:13 | NUR ---
Pt resting in bed, assessment completed. pt reports some pain in abdominal region and right pinky toe that she says is broken. no edema noted. heart sounds are regular and tachcardic in the 110s. pt denies shortness of breath and apears calm with minimal visual tremors. blood pressure in the 150s, no fever. gave librium per orders, documented in JUL. will continue to monitor.
[2020-02-15] VITALS (9 sets, daily range): BP systolic 123–166; BP diastolic 87–104; PULSE 71–112; TEMP 98–98.5
--- NOTE | 2020-02-15 00:27 | NUR ---
pt detox score was 3, did not give librium per orders. pt sleeping, will continue to monitor.
--- NOTE | 2020-02-15 05:00 | NUR ---
pt resting in bed most of the night sleeping. pt appears calm, mild tremors visible and blood pressure remained below 150 tonight. scoring 3-5 on detox protocol, gave librium accordingly and documented in MAR. no other needs at this time.
[2020-02-15 07:49] LABS: BASO % 0.5 % (0.0-2.0); EOS # 0.1 (0.0-0.7); EOS % 1.6 % (0-4.0); GRAN # 2.5 (1.4-6.5); GRAN % 65.7 % (42.2-75.2); LYMPH % 25.8 % (20.0-51.0); MEAN CELL VOLUME 85 fl (80.0-100.0); MEAN CORPUSCULAR HGB CONC 30 g/dl (33.0-37.0); MEAN PLATELET VOLUME 10.6 fl (7.4-10.4); MONO # 0.2 (0.1-0.6); MONO % 6.1 % (1.7-9.3); PLATELET COUNT 138 K/mm3 (130-400); RED BLOOD COUNT 3.41 M/mm3 (4.10-5.30); REDCELL DISTRIBUTION WIDTH-CV 19.5 % (11.5-14.5)
[2020-02-15 07:52] LABS: ALBUMIN 3.7 gm/dL (3.5-5.0); BILIRUBIN,TOTAL 1.4 mg/dL (0.0-1.0); CALCIUM 8.6 mg/dL (8.4-10.2); CREATININE, serum 0.5 (0.52-1.25); MAGNESIUM 2.4 mg/dL (1.6-2.3); POTASSIUM 3.6 mmol/L (3.4-5.0); TOTAL PROTEIN 6.8 gm/dL (6.4-8.2)
[2020-02-15 07:55] LABS: HEMATOCRIT 28.8 % (37.0-47.0); HEMOGLOBIN 8.7 g/dl (12.5-16.0); MEAN CORPUSCULAR HEMOGLOBIN 26 pg (27.0-31.0)
--- NOTE | 2020-02-15 11:53 | NUR ---
Assessment completed, alert/oriented, vital signs have been stable/ slighty tachy and HTN at times, on CIWA scores ranging from 3-6, patient is anxious and has visible tremors, treating with PRN Librium, tolerating diet well without any N/V, heart regular rythm, lugns CTA/ no resp.difficulty, will continue to monitor
--- NOTE | 2020-02-15 12:18 | NUR ---
First visit from the air transport professionals. No needs right now.
--- NOTE | 2020-02-15 12:51 | NUR ---
SW met with the patient to discuss discharge plan. The patient lives in [place] with her , Akhil (ph#[phone]), and two children. Her children are fourteen and [id number]. She reports independence with ADLs and has a cane, walker and wheelchair available if needed. The patient receives primary care at [facility], clinic 3. She receives her medications at [facility] and she reports no difficulties obtaining her meds. The patient does not have advance directives and she was not interested in completing a DPOA-HC at this time. The patient plans to return home with her family upon discharge. SW addressed the patient's alcohol use. The patient already had social work's resource guide for drug and alcohol. The patient reports that she is interested in outpatient treatment. She states that she is already receiving family and individual therapy from [facility] and went to a couple of AA meetings before being admitted. She states that she is interested in getting set up at [facility] for outpatient treatment. THUY contacted [facility]. [facility] reports that the patient needs evaluated first, before they can see her. They do not offer the evals. [facility] referred SW to [facility] (ph#[phone]) in [place] or Andreina (ph#[phone]) at [facility] in [place]. Once the patient gets an eval from one of them, then they can see the patient. SW to update the patient on this an obtain preference.
--- NOTE | 2020-02-15 19:02 | NUR ---
Patient has decided to leave AMA, I notified hospitalist, IV and tele removed, patient signed AMA sheet
== END 2020-02-15 18:30 | disposition left against medical advice (07) | DRG 894 ==
LOC: COL.ER 07:43 → MEDICAL 09:41
PROVIDERS: Emergency Medicine
DX: F10.239 Alcohol dependence with withdrawal, unspecified (principal); U07.1 COVID-19; E87.1 Hypo-osmolality and hyponatremia; E66.01 Morbid (severe) obesity due to excess calories; E83.42 Hypomagnesemia; E83.39 Other disorders of phosphorus metabolism; F41.9 Anxiety disorder, unspecified; D64.9 Anemia, unspecified; I10 Essential (primary) hypertension
CPT/HCPCS: 99223-AI; C9113; G0378; J1100; J1650; J3360; J3411; J3475; J7030

== ENCOUNTER 2020-03-22 16:30 | Emergency (ER) | payer SELFPAY ==
[~2020-03-22] VITALS: Ht 167.6 cm; Wt 72.7 kg
[2020-03-22 16:31] VITALS: TEMP 98
[2020-03-22 16:47] LABS: BASO # 0.2 (0.0-0.2); BASO % 1.4 % (0.0-2.0); EOS # 0.5 (0.0-0.7); EOS % 4.5 % (0-4.0); GRAN # 7.1 (1.4-6.5); GRAN % 63.8 % (42.2-75.2); LYMPH # 2.6 (1.2-3.4); LYMPH % 23.8 % (20.0-51.0); MEAN CELL VOLUME 79 fl (80.0-100.0); MEAN CORPUSCULAR HGB CONC 30 g/dl (33.0-37.0); MEAN PLATELET VOLUME 10.2 fl (7.4-10.4); MONO # 0.7 (0.1-0.6); MONO % 6.2 % (1.7-9.3); PLATELET COUNT 943 K/mm3 (130-400); RED BLOOD COUNT 4.21 M/mm3 (4.10-5.30); REDCELL DISTRIBUTION WIDTH-CV 19.7 % (11.5-14.5)
[2020-03-22 16:49] LABS: HEMATOCRIT 33.2 % (37.0-47.0); HEMOGLOBIN 9.8 g/dl (12.5-16.0); MEAN CORPUSCULAR HEMOGLOBIN 23 pg (27.0-31.0)
[2020-03-22 16:54] LABS: ACETAMINOPHEN < 10 ug/mL (10-30); ALANINE AMINOTRANSFERASE 33 U/L (4-34); ALBUMIN 4.3 gm/dL (3.5-5.0); ALCOHOL(ethanol),MEDICAL 229 mg/dL; ALKALINE PHOSPHATASE 110 U/L (50-136); ANION GAP 13 mmol/L (7-16); AST,SGOT 60 U/L (15-37); BILIRUBIN,TOTAL 0.3 mg/dL (0.0-1.0); BLOOD UREA NITROGEN 13 mg/dL (7-17); CALCIUM 8.9 mg/dL (8.4-10.2); CARBON DIOXIDE 21 mmol/L (22-30); CHLORIDE 106 mmol/L (98-107); CREATININE, serum 0.57 (0.52-1.25); GLUCOSE 102 mg/dL (74-106); POTASSIUM 3.6 mmol/L (3.4-5.0); SALICYLATE < 1.0 mg/dL; SODIUM 140 mmol/L (137-145); TOTAL PROTEIN 7.6 gm/dL (6.4-8.2)
[2020-03-22 18:16] LABS: COLLECTION METHOD CATHETER
[2020-03-22 18:26] LABS: MUCOUS Present /lpf; PH 6 (5-8); SQUAMOUS EPITHELIAL 0-2 /hpf; URINE APPEARANCE Clear; URINE BACTERIA None Seen /hpf; URINE BILIRUBIN Negative (NEGATIVE); URINE BLOOD Negative (NEGATIVE); URINE COLOR Yellow; URINE GLUCOSE Negative (NEGATIVE); URINE KETONE Negative (NEGATIVE); URINE LEUKOCYTE ESTERASE Negative (NEGATIVE); URINE NITRATE Negative (NEGATIVE); URINE PROTEIN(semi-quant) Negative (NEGATIVE); URINE RBC 0-2 /hpf; URINE UROBILINOGEN Negative (NEGATIVE)
[2020-03-22 18:37] LABS: TRICYCLIC ANTIDEPRESS URINE NEGATIVE
[2020-03-22 19:07] VITALS: BP 125/88; PULSE 97
== END 2020-03-22 19:14 | disposition home or self-care (01) ==
LOC: COL.ER 16:30
PROVIDERS: Emergency Medicine
DX: F10.129 Alcohol abuse with intoxication, unspecified (principal); Y90.7 Blood alcohol level of 200-239 mg/100 ml; Z88.1 Allergy status to other antibiotic agents; V89.2XXA Person injured in unspecified motor-vehicle accident, traffic, initial encounter
CPT/HCPCS: J2405; J7030

== ENCOUNTER → 2020-03-23 | Outpatient (CLI) | payer OTHER | LOC: BHSO 10:02 | DX: F10.20 Alcohol dependence, uncomplicated (principal) | CPT/HCPCS: G0463 ==

== ENCOUNTER 2020-04-10 07:15 | Inpatient (IN) | payer OTHER ==
[~2020-04-10] VITALS: Ht 165.1 cm; Wt 72.1 kg
[2020-04-10] VITALS (805 sets, daily range): BP systolic 75–142; BP diastolic 63–123; PULSE 71–132; TEMP 30.2–34.7; O2SAT 98–100
[2020-04-10 07:40] LABS: ARTERIAL BLD GAS O2 SATURATION 96.8 % (92-100); ARTERIAL BLD GAS TCO2 CT 13.1; ARTERIAL BLOOD GAS BASE EXCESS -21.5 (-2-2); ARTERIAL BLOOD GAS HCO3 11.1 meq/L (22-26); ARTERIAL BLOOD GAS PCO2 63.1 mmHg (35-45); ARTERIAL BLOOD GAS PO2 335.2 mmHg (80-100); ARTERIAL BLOOD GAS pH 6.86 (7.35-7.45)
[2020-04-10 07:56] LABS: ARTERIAL BLD GAS O2 SATURATION 96.5 % (92-100); ARTERIAL BLD GAS TCO2 CT 17.9; ARTERIAL BLOOD GAS BASE EXCESS -12.8 (-2-2); ARTERIAL BLOOD GAS HCO3 16.2 meq/L (22-26); ARTERIAL BLOOD GAS PCO2 53.1 mmHg (35-45)
[2020-04-10 07:57] LABS: ARTERIAL BLOOD GAS PO2 245.5 mmHg (80-100)
[2020-04-10 08:04] LABS: MEAN CELL VOLUME 80 fl (80.0-100.0); MEAN CORPUSCULAR HGB CONC 28 g/dl (33.0-37.0); MEAN PLATELET VOLUME 10.9 fl (7.4-10.4); PLATELET COUNT 186 K/mm3 (130-400); RED BLOOD COUNT 3.66 M/mm3 (4.10-5.30); REDCELL DISTRIBUTION WIDTH-CV 19.8 % (11.5-14.5)
[2020-04-10 08:05] LABS: HEMATOCRIT 29.3 % (37.0-47.0); HEMOGLOBIN 8.3 g/dl (12.5-16.0); MEAN CORPUSCULAR HEMOGLOBIN 23 pg (27.0-31.0)
[2020-04-10 08:10] LABS: ALBUMIN 3.4 gm/dL (3.5-5.0); BILIRUBIN,TOTAL 0.6 mg/dL (0.0-1.0); CALCIUM 8.2 mg/dL (8.4-10.2); CREATININE, serum 0.77 (0.52-1.25); POTASSIUM 3.5 mmol/L (3.4-5.0); TOTAL PROTEIN 5.9 gm/dL (6.4-8.2)
[2020-04-10 08:23] LABS: TROPONIN-I 0.123 ng/mL (0.000-0.035)
[2020-04-10 08:25] LABS: TRICYCLIC ANTIDEPRESS URINE NEGATIVE
[2020-04-10 08:30] LABS: ANISOCYTOSIS 2+; BAND 5 % (0-10); HYPOCHROMIA 3+; LYMPHOCYTE 52 % (20.0-51.0); MICROCYTOSIS 1+; NEUTROPHILS 38 % (42.0-75.2); OVALOCYTES 1+; PLATELET ESTIMATE NORMAL (NORMAL)
[2020-04-10 08:51] LABS: PARTIAL THROMBOPLASTIN TIME 30.2 SECONDS (26.0-37.0)
--- NOTE | 2020-04-10 09:42 | NUR ---
Patient arrived from petroleum laboratory technician. No report on patient situation has been given at this point. Got bedside report from LILIANA Szymanski. Cath was clean, no interventions needed at this time. Patient is intubated and unresponsive on no sedation. Rigt groin sight was looked at and assessed with Stephon as well as IV gtt's, to include levophed, amiodorone and NS.
--- NOTE | 2020-04-10 10:00 | NUR ---
Patient is intubated, not sedated, and unresponsive. ordered hypothermic protocol. It was initiated at 1000.
[2020-04-10 10:18] LABS: ARTERIAL BLD GAS O2 SATURATION 95.9 % (92-100); ARTERIAL BLD GAS TCO2 CT 22.6; ARTERIAL BLOOD GAS BASE EXCESS -2.9 (-2-2); ARTERIAL BLOOD GAS HCO3 21.5 meq/L (22-26); ARTERIAL BLOOD GAS PCO2 35.8 mmHg (35-45)
[2020-04-10 10:19] LABS: ARTERIAL BLOOD GAS PO2 132.4 mmHg (80-100)
--- NOTE | 2020-04-10 11:28 | NUR ---
Jovany SMITH, at bedside to place arterial line. It was sucessfully placed without any complications. Good waveform on monitor.
[2020-04-10 11:37] LABS: HEMOGLOBIN A1C 5.2 %
[2020-04-10 11:47] LABS: HEMATOCRIT 34.6 % (37.0-47.0); HEMOGLOBIN 10.4 g/dl (12.5-16.0); MEAN CELL VOLUME 76 fl (80.0-100.0); MEAN CORPUSCULAR HEMOGLOBIN 23 pg (27.0-31.0); MEAN CORPUSCULAR HGB CONC 30 g/dl (33.0-37.0); MEAN PLATELET VOLUME 10.4 fl (7.4-10.4); PLATELET COUNT 205 K/mm3 (130-400); RED BLOOD COUNT 4.56 M/mm3 (4.10-5.30)
[2020-04-10 11:47] LABS: ACETAMINOPHEN < 10 ug/mL (10-30); SALICYLATE < 1.0 mg/dL
[2020-04-10 12:00] LABS: INR 1.2 (0.8-3.0); PROTHROMBIN TIME 13.1 SECONDS (9.7-12.8)
[2020-04-10 12:01] LABS: ALANINE AMINOTRANSFERASE 84 U/L (4-34); ALBUMIN 4.2 gm/dL (3.5-5.0); ALKALINE PHOSPHATASE 152 U/L (50-136); AMYLASE 110 U/L (30-110); ANION GAP 9 mmol/L (7-16); AST,SGOT > 750 U/L (15-37); BLOOD UREA NITROGEN 12 mg/dL (7-17); CALCIUM 8.4 mg/dL (8.4-10.2); CARBON DIOXIDE 28 mmol/L (22-30); CHLORIDE 105 mmol/L (98-107); CREATININE, serum 0.66 (0.52-1.25); GLUCOSE 325 mg/dL (74-106); LIPASE 190 U/L (23-300); MAGNESIUM 2.6 mg/dL (1.6-2.3); PHOSPHOROUS 4.2 mg/dL (2.5-4.5); POTASSIUM 3.7 mmol/L (3.4-5.0); SODIUM 142 mmol/L (137-145); TOTAL PROTEIN 7.1 gm/dL (6.4-8.2)
[2020-04-10 12:22] LABS: ANISOCYTOSIS 3+; BAND 6 % (0-10); EOSINOPHIL 2 % (0-4); HYPOCHROMIA 1+; LYMPHOCYTE 6 % (20.0-51.0); NEUTROPHILS 85 % (42.0-75.2); PLATELET ESTIMATE NORMAL (NORMAL); SCHISTOCYTES 1+
--- NOTE | 2020-04-10 12:22 | NUR ---
certified veterinary technician at bedside.
--- NOTE | 2020-04-10 12:44 | NUR ---
Called to notify him of neurological consult. He will be here shortly.
--- NOTE | 2020-04-10 12:48 | NUR ---
Initial visit; Patient vented, Boat Camp Operator spent much of her time today with patient's Akhil and Kylah's parents. Boat Camp Operator offered comfort, prayer and helped in practical things such as taking Akhil to the cafeteria. Boat Camp Operator will continue to offer support.
[2020-04-10] MEDS ORDERED: CELEXA40 MG PO (13:24)
[2020-04-10 13:25] LABS: LACTIC ACID 3.9 mmol/L (0.4-2.0)
[2020-04-10 14:13] LABS: ARTERIAL BLD GAS O2 SATURATION 95.6 % (92-100); ARTERIAL BLOOD GAS BASE EXCESS 0.1 (-2-2); ARTERIAL BLOOD GAS PCO2 31.5 mmHg (35-45); ARTERIAL BLOOD GAS pH 7.48 (7.35-7.45)
[2020-04-10 14:14] LABS: ARTERIAL BLOOD GAS PO2 123.4 mmHg (80-100)
--- NOTE | 2020-04-10 14:23 | NUR ---
called to give order to turn rate on ventilator down to 15. Called RT to let her know. Also, I notified that patients blood pressure has increased back to 130's/100's and HR is back to ST in the 120's. He said to go ahead and put the patient on a little bit of levophed.
--- NOTE | 2020-04-10 14:45 | NUR ---
Patient taken to CT with 2 RN's, and RT. Patient on transport monior and being bagged by RT. Patient remained stable during CT.
--- NOTE | 2020-04-10 15:00 | NUR ---
Patient returned back from CT. Patient remains stable at this time.
--- NOTE | 2020-04-10 15:10 | NUR ---
called with CT results. He said there is some diffuse swelling and likely anoxic brain injury with cerebral swelling.
--- NOTE | 2020-04-10 15:45 | NUR ---
was notified of CT results. He said to call and see if [facility] has a neuro ICU bed to transfer patient to. And to tell to talk to family.
--- NOTE | 2020-04-10 15:47 | NUR ---
Called to notify him of CT results and what said about neuro ICU and to speak to family. will be down to ICU shortly.
--- NOTE | 2020-04-10 16:45 | NUR ---
at bedside and spoke to [facility]. He also called to notify him and ask him if there is anything else we can do in the meantime. said we can give IV manitol. put in order for that. Still waiting to hear back from at this time.
--- NOTE | 2020-04-10 17:06 | NUR ---
called to give order to turn up respiratory rate to 20 on ventilator. RT was notified right away.
[2020-04-10 17:19] LABS: INR 1.2 (0.8-3.0); PROTHROMBIN TIME 13.1 SECONDS (9.7-12.8)
[2020-04-10 17:22] LABS: PARTIAL THROMBOPLASTIN TIME 29.9 SECONDS (26.0-37.0)
[2020-04-10 17:37] LABS: BILIRUBIN UNCONJUGATED 0.3 mg/dL (0.0-1.1); BILIRUBIN,DIRECT 0.2 mg/dL (0.0-0.4); BILIRUBIN,TOTAL 0.5 mg/dL (0.0-1.0); CALCIUM 8.4 mg/dL (8.4-10.2); CREATININE, serum 0.59 (0.52-1.25); POTASSIUM 3.1 mmol/L (3.4-5.0)
[2020-04-10 18:01] LABS: PHOSPHOROUS 3.1 mg/dL (2.5-4.5)
[2020-04-10 18:02] LABS: MAGNESIUM 2.6 mg/dL (1.6-2.3)
[2020-04-10 18:18] LABS: ALBUMIN 3.9 gm/dL (3.5-5.0); TOTAL PROTEIN 6.7 gm/dL (6.4-8.2)
[2020-04-10] MEDS ORDERED: INDERAL 20MG20 MG PO (18:20)
[2020-04-10] MEDS ORDERED: KLONOPIN 0.5MG0.5 MG PO (18:21)
[2020-04-10] MEDS ORDERED: ADDERALL20 MG PO (18:22)
[2020-04-10] MEDS ORDERED: EFFEXOR 75M75 MG/TAB PO (18:22)
[2020-04-10] MEDS ORDERED: DESYREL 50MG50 MG PO (18:23)
[2020-04-10] MEDS ORDERED: ATARAX 25MG25 MG/TAB PO (18:24)
[2020-04-10] MEDS ORDERED: ATARAX50 MG PO (18:25)
[2020-04-10] MEDS ORDERED: PROTONIX40 MG/Pack PO (18:25)
[2020-04-10] MEDS ORDERED: CELEXA 20MG20 MG/TAB PO (18:26)
[2020-04-10] MEDS ORDERED: INDERAL40 MG PO (18:27)
[2020-04-10] MEDS ORDERED: ANTABUSE 250MG250 MG PO (18:27)
[2020-04-10 19:37] LABS: COLLECTION METHOD CATHETER
[2020-04-10 19:43] LABS: MUCOUS Present /lpf; PH 6 (5-8); SQUAMOUS EPITHELIAL 0-2 /hpf; URINE APPEARANCE Clear; URINE BACTERIA None Seen /hpf; URINE BILIRUBIN Negative (NEGATIVE); URINE BLOOD Negative (NEGATIVE); URINE COLOR Yellow; URINE GLUCOSE Negative (NEGATIVE); URINE KETONE Trace (NEGATIVE); URINE LEUKOCYTE ESTERASE Negative (NEGATIVE); URINE NITRATE Negative (NEGATIVE); URINE PROTEIN(semi-quant) 1+ (NEGATIVE); URINE RBC 0-2 /hpf; URINE UROBILINOGEN >=4.0 mg/dL (NEGATIVE)
--- NOTE | 2020-04-10 20:00 | NUR ---
PT's mother at bedside, updated her on POC and stated that we will contact her with any updates.
--- NOTE | 2020-04-10 20:20 | NUR ---
This RN went with Nabila Quinones APRN to the waiting room to speak with patient's parents about poor patient prognosis and being unable to transfer patient to another facility due to this prognosis. Parents understanding of the grave outcome. All questions answered and emotional support offered. Parents encouraged to make sure their phones were on in case of any changes. Will provide patients parents with updates.
--- NOTE | 2020-04-10 21:15 | NUR ---
PT spoke with LILIANA Vallecillo and Nabila Quinones APRN about making patient DNR status after hearing about likely brain of patient. PT family at bedside to say goodbyes to the patient in case of poor outcome. Will provide updates to patient family.
--- NOTE | 2020-04-10 23:19 | NUR ---
Contacted [facility] at 2300 and spoke with Margarita. States someone from [facility] will plan to visit tomorrow to assess the patient. Referral # [id number]
[2020-04-10 23:48] LABS: INR 1.1 (0.8-3.0); PROTHROMBIN TIME 12.8 SECONDS (9.7-12.8)
[2020-04-10 23:51] LABS: PARTIAL THROMBOPLASTIN TIME 31.5 SECONDS (26.0-37.0)
[2020-04-10 23:56] LABS: ALBUMIN 3.9 gm/dL (3.5-5.0); CREATININE, serum 0.58 (0.52-1.25); MAGNESIUM 2.6 mg/dL (1.6-2.3); PHOSPHOROUS 1.9 mg/dL (2.5-4.5); POTASSIUM 3.1 mmol/L (3.4-5.0); TOTAL PROTEIN 6.9 gm/dL (6.4-8.2)
[2020-04-11] VITALS (1216 sets, daily range): BP systolic 70–157; BP diastolic 56–114; PULSE 85–135; TEMP 30.5–37.7; O2SAT 88–100
[2020-04-11 00:07] LABS: ARTERIAL BLD GAS O2 SATURATION 95.9 % (92-100); ARTERIAL BLD GAS TCO2 CT 20.5; ARTERIAL BLOOD GAS BASE EXCESS -3.3 (-2-2); ARTERIAL BLOOD GAS HCO3 19.6 meq/L (22-26); ARTERIAL BLOOD GAS PCO2 28.9 mmHg (35-45); ARTERIAL BLOOD GAS pH 7.45 (7.35-7.45)
[2020-04-11 00:09] LABS: ARTERIAL BLOOD GAS PO2 151.8 mmHg (80-100)
[2020-04-11 00:23] LABS: BILIRUBIN UNCONJUGATED 0.4 mg/dL (0.0-1.1); BILIRUBIN,DIRECT 0.1 mg/dL (0.0-0.4); BILIRUBIN,TOTAL 0.5 mg/dL (0.0-1.0)
[2020-04-11 04:36] LABS: BASO % 0.2 % (0.0-2.0); GRAN # 11.8 (1.4-6.5); GRAN % 88.5 % (42.2-75.2); HEMATOCRIT 37.1 % (37.0-47.0); HEMOGLOBIN 11.1 g/dl (12.5-16.0); LYMPH # 1.1 (1.2-3.4); LYMPH % 7.9 % (20.0-51.0); MEAN CELL VOLUME 75 fl (80.0-100.0); MEAN CORPUSCULAR HEMOGLOBIN 22 pg (27.0-31.0); MEAN CORPUSCULAR HGB CONC 30 g/dl (33.0-37.0); MEAN PLATELET VOLUME 10.8 fl (7.4-10.4); MONO # 0.4 (0.1-0.6); MONO % 2.8 % (1.7-9.3); PLATELET COUNT 275 K/mm3 (130-400); RED BLOOD COUNT 4.96 M/mm3 (4.10-5.30); REDCELL DISTRIBUTION WIDTH-CV 20.6 % (11.5-14.5)
[2020-04-11 04:40] LABS: ALBUMIN 3.8 gm/dL (3.5-5.0); BILIRUBIN,TOTAL 0.4 mg/dL (0.0-1.0); CALCIUM 8.8 mg/dL (8.4-10.2); CREATININE, serum 0.61 (0.52-1.25); MAGNESIUM 2.5 mg/dL (1.6-2.3); PHOSPHOROUS 4.6 mg/dL (2.5-4.5); TOTAL PROTEIN 6.8 gm/dL (6.4-8.2)
[2020-04-11 04:41] LABS: INR 1.2 (0.8-3.0)
[2020-04-11 04:43] LABS: PARTIAL THROMBOPLASTIN TIME 29.7 SECONDS (26.0-37.0)
[2020-04-11 04:55] LABS: BILIRUBIN UNCONJUGATED 0.2 mg/dL (0.0-1.1)
--- NOTE | 2020-04-11 05:00 | NUR ---
PT is on no sedation at this time.
[2020-04-11 05:06] LABS: BILIRUBIN,DIRECT 0.1 mg/dL (0.0-0.4)
[2020-04-11 05:54] LABS: ARTERIAL BLD GAS O2 SATURATION 95.1 % (92-100); ARTERIAL BLD GAS TCO2 CT 20.1; ARTERIAL BLOOD GAS BASE EXCESS -7.2 (-2-2); ARTERIAL BLOOD GAS HCO3 18.8 meq/L (22-26); ARTERIAL BLOOD GAS PO2 128.7 mmHg (80-100); ARTERIAL BLOOD GAS pH 7.29 (7.35-7.45)
--- NOTE | 2020-04-11 06:17 | NUR ---
Spoke with [facility] and provided updates on patient lab values and ABG.
--- NOTE | 2020-04-11 08:24 | NUR ---
at bedside. Says we can do apnea test once patient is warmed and ECS protocol with EEG if wanted.
--- NOTE | 2020-04-11 10:15 | NUR ---
[facility] called for updates.
--- NOTE | 2020-04-11 10:24 | NUR ---
at bedside. Okay to D/C restraints since patient is likely brain and has no voluntary movements and is completely unresponsive to any and all stimuli.
--- NOTE | 2020-04-11 10:47 | NUR ---
Clinical Cytogenetics Director contacted patient's , Akhil (ph#[phone]) to touch base and introduce self. THUY collaborated with Lucy, Senior Stack Engineer who met with Akhil yesterday when patient was brought into ED. THUY advised Akhil that Lucy contacted Keith De Luna, Therapist and his office advised they were here for Akhil. THUY advised Akhil that they have walk in hours from [phone]. Akhil reports he has an appointment tomorrow with him. Akhil asked about contact information for Financial [facility] as he had a question about his bill. THUY provided contact information for [facility]. THUY will continue to follow.
[2020-04-11 10:56] LABS: INR 1.2 (0.8-3.0); PROTHROMBIN TIME 13.2 SECONDS (9.7-12.8)
--- NOTE | 2020-04-11 10:56 | NUR ---
Called to clarify what he wants as far as brain testing goes. He said no EEG is needed to confirm , only apnea test.
[2020-04-11 10:59] LABS: PARTIAL THROMBOPLASTIN TIME 29.7 SECONDS (26.0-37.0)
[2020-04-11 11:31] LABS: ARTERIAL BLD GAS O2 SATURATION 95.2 % (92-100); ARTERIAL BLD GAS TCO2 CT 14.2; ARTERIAL BLOOD GAS BASE EXCESS -8.5 (-2-2); ARTERIAL BLOOD GAS HCO3 13.6 meq/L (22-26); ARTERIAL BLOOD GAS PCO2 19.5 mmHg (35-45); ARTERIAL BLOOD GAS PO2 114.4 mmHg (80-100); ARTERIAL BLOOD GAS pH 7.46 (7.35-7.45)
[2020-04-11 12:30] LABS: ALBUMIN 3.7 gm/dL (3.5-5.0); BILIRUBIN,TOTAL 0.3 mg/dL (0.0-1.0); CALCIUM 9.1 mg/dL (8.4-10.2); CREATININE, serum 0.61 (0.52-1.25); MAGNESIUM 2.7 mg/dL (1.6-2.3); PHOSPHOROUS 2.1 mg/dL (2.5-4.5); POTASSIUM 4.1 mmol/L (3.4-5.0); TOTAL PROTEIN 6.6 gm/dL (6.4-8.2)
[2020-04-11 12:49] LABS: BILIRUBIN UNCONJUGATED 0.2 mg/dL (0.0-1.1); BILIRUBIN,DIRECT 0.2 mg/dL (0.0-0.4)
--- NOTE | 2020-04-11 13:14 | NUR ---
Pt is in the process of being rewarmed now. Her nurse reports that at this ipoint she is unresponsive but we cannot make a brain diagnosis until the patient is fully warmed. I called the Akhil at home and Kylah's parents were also there. On speaker phone, I introduced myself and that the purpose of my call is to make sure that they have the support they need and to determine what their goals of care are. Akhil was clear that there is a DNR code status and that they would not want a code to be run if she should reach that point before the brain test could be run. They DO NOT WISH TO BE ASKED WHAT THEIR GOALS OF CARE ARE UNTIL AFTER THOSE TEST RESULTS ARE AVAILABLE. Olinda stated that they are realistic but do want to make any further decisions until that information is available which they were told would be at 1000 tomorrow. They did ask that if that time should change, that they be notified and this request was relayed to her primary nurse. After they have the test results, then they will make a decision about what to do following that. They do report having support from their respiratory clinician and family to help them through this time. They deny questions at this point.
--- NOTE | 2020-04-11 16:30 | NUR ---
Called to notify him that the patients HR is now ST in the 130's. and BP is hypotensive with levophed being titrated up. He gave verbal order over phone to start vasopressin.
[2020-04-11 16:58] LABS: ARTERIAL BLD GAS O2 SATURATION 93.8 % (92-100); ARTERIAL BLD GAS TCO2 CT 17.2; ARTERIAL BLOOD GAS BASE EXCESS -6.1 (-2-2); ARTERIAL BLOOD GAS HCO3 16.5 meq/L (22-26); ARTERIAL BLOOD GAS PCO2 23.9 mmHg (35-45); ARTERIAL BLOOD GAS pH 7.46 (7.35-7.45)
[2020-04-11 17:15] LABS: INR 1.3 (0.8-3.0); PROTHROMBIN TIME 14.2 SECONDS (9.7-12.8)
[2020-04-11 17:18] LABS: ALBUMIN 3.1 gm/dL (3.5-5.0); CALCIUM 8.7 mg/dL (8.4-10.2); CREATININE, serum 0.71 (0.52-1.25); MAGNESIUM 2.1 mg/dL (1.6-2.3); PARTIAL THROMBOPLASTIN TIME 28.5 SECONDS (26.0-37.0); PHOSPHOROUS 1.4 mg/dL (2.5-4.5); POTASSIUM 3.6 mmol/L (3.4-5.0); TOTAL PROTEIN 5.7 gm/dL (6.4-8.2)
--- NOTE | 2020-04-11 17:19 | NUR ---
Called patient's , Akhil. Discussed that patient is normothermic. Dr. Szymanski on unit & will begin brain testing. does not wish to be present at this time. Would like to be called when testing completed.
[2020-04-11 17:46] LABS: ARTERIAL BLD GAS O2 SATURATION 96.3 % (92-100); ARTERIAL BLD GAS TCO2 CT 16.6; ARTERIAL BLOOD GAS BASE EXCESS -7.1 (-2-2); ARTERIAL BLOOD GAS HCO3 15.9 meq/L (22-26); ARTERIAL BLOOD GAS PCO2 24.6 mmHg (35-45); ARTERIAL BLOOD GAS pH 7.43 (7.35-7.45)
[2020-04-11 17:47] LABS: ARTERIAL BLOOD GAS PO2 246.9 mmHg (80-100)
--- NOTE | 2020-04-11 18:08 | NUR ---
tidal volumes changed to [address] woodward order.
[2020-04-11 18:09] LABS: BILIRUBIN UNCONJUGATED 0.2 mg/dL (0.0-1.1); BILIRUBIN,DIRECT 0.1 mg/dL (0.0-0.4); BILIRUBIN,TOTAL 0.3 mg/dL (0.0-1.0)
[2020-04-11 19:12] LABS: ARTERIAL BLD GAS O2 SATURATION 96.4 % (92-100); ARTERIAL BLD GAS TCO2 CT 20.6; ARTERIAL BLOOD GAS BASE EXCESS -5.9 (-2-2); ARTERIAL BLOOD GAS HCO3 19.5 meq/L (22-26); ARTERIAL BLOOD GAS PCO2 37.6 mmHg (35-45); ARTERIAL BLOOD GAS PO2 322.1 mmHg (80-100); ARTERIAL BLOOD GAS pH 7.33 (7.35-7.45)
--- NOTE | 2020-04-11 19:23 | NUR ---
CALLED DR. LEO WITH ABG RESULTS, PH IS TOO LOW. WANTED A CHANGE IN SETTINGS FOR TIDAL VOLUME OF 500, RATE 20, PEEP 5, AND 100% FIO2. WOULD LIKE ABG DONE AT 2300 NOT 2100.
--- NOTE | 2020-04-11 19:36 | NUR ---
VENT SETTINGS CHANGED PER DR. LEO, SEE NOTE.
[2020-04-11 23:34] LABS: INR 1.3 (0.8-3.0); PROTHROMBIN TIME 14.7 SECONDS (9.7-12.8)
[2020-04-11 23:38] LABS: BILIRUBIN,TOTAL 0.3 mg/dL (0.0-1.0); CALCIUM 8.7 mg/dL (8.4-10.2); CREATININE, serum 0.85 (0.52-1.25); MAGNESIUM 1.8 mg/dL (1.6-2.3); PHOSPHOROUS 1.9 mg/dL (2.5-4.5); POTASSIUM 4.7 mmol/L (3.4-5.0); TOTAL PROTEIN 5.8 gm/dL (6.4-8.2)
[2020-04-11 23:40] LABS: ARTERIAL BLD GAS O2 SATURATION 96.2 % (92-100); ARTERIAL BLD GAS TCO2 CT 15.8; ARTERIAL BLOOD GAS BASE EXCESS -7.9 (-2-2); ARTERIAL BLOOD GAS HCO3 15.1 meq/L (22-26); ARTERIAL BLOOD GAS PCO2 23.2 mmHg (35-45); ARTERIAL BLOOD GAS pH 7.43 (7.35-7.45)
[2020-04-11 23:41] LABS: ARTERIAL BLOOD GAS PO2 203.2 mmHg (80-100)
--- NOTE | 2020-04-11 23:52 | NUR ---
CALLED [facility] AT 2345 TO REPORT ABG RESULTS. REPORTED CO2 AND PO2. SPOKE WITH DR. BAZZI FROM [facility]. SHE WANTED TO RATE DROPPED TO 18, HOWEVER THE REST OF THE SETTINGS STAY THE SAME. AND CONINUE WITH ABG'S NORMAL.
[2020-04-11 23:54] LABS: BILIRUBIN UNCONJUGATED 0.2 mg/dL (0.0-1.1); BILIRUBIN,DIRECT 0.1 mg/dL (0.0-0.4)
[2020-04-12] VITALS (969 sets, daily range): BP systolic 75–160; BP diastolic 59–109; PULSE 110–129; TEMP 36.7–37.7; O2SAT 78–100
--- NOTE | 2020-04-12 00:07 | NUR ---
VENT SETTINGS CHANGED PER DR. Becerra from [facility] RATE WAS DROPPED FROM 20 TO 18.
--- NOTE | 2020-04-12 03:58 | NUR ---
Spoke with [facility], gave updates on patient lab values and POC.
[2020-04-12 04:31] LABS: ARTERIAL BLD GAS O2 SATURATION 94.8 % (92-100); ARTERIAL BLD GAS TCO2 CT 18.1; ARTERIAL BLOOD GAS BASE EXCESS -6.6 (-2-2); ARTERIAL BLOOD GAS HCO3 17.2 meq/L (22-26); ARTERIAL BLOOD GAS PO2 103.4 mmHg (80-100); ARTERIAL BLOOD GAS pH 7.39 (7.35-7.45)
--- NOTE | 2020-04-12 05:28 | NUR ---
Spent appx. 20 minutes this evening speaking with patient's , Akhil. Discussed brain protocol, apnea test, ABG's, and POC for the day. states he is having a very difficult time but has an appointment with a telehealth therapist at 0930, hopes that it does not interfere with apnea trial today. States that he and the patient's parents will be here today for the trial. Emotional support given, questions encouraged, and encouraged to call back at any time to talk.
[2020-04-12 05:33] LABS: MEAN CELL VOLUME 77 fl (80.0-100.0); MEAN CORPUSCULAR HGB CONC 29 g/dl (33.0-37.0); MEAN PLATELET VOLUME 10.9 fl (7.4-10.4); PLATELET COUNT 179 K/mm3 (130-400); RED BLOOD COUNT 3.88 M/mm3 (4.10-5.30); REDCELL DISTRIBUTION WIDTH-CV 20.9 % (11.5-14.5)
[2020-04-12 05:37] LABS: HEMOGLOBIN 8.8 g/dl (12.5-16.0); MEAN CORPUSCULAR HEMOGLOBIN 23 pg (27.0-31.0)
[2020-04-12 05:45] LABS: ALBUMIN 2.7 gm/dL (3.5-5.0); BILIRUBIN,TOTAL 0.4 mg/dL (0.0-1.0); CALCIUM 8.6 mg/dL (8.4-10.2); CREATININE, serum 0.89 (0.52-1.25); MAGNESIUM 1.6 mg/dL (1.6-2.3); PHOSPHOROUS 3.6 mg/dL (2.5-4.5); POTASSIUM 4.9 mmol/L (3.4-5.0); TOTAL PROTEIN 5.5 gm/dL (6.4-8.2)
--- NOTE | 2020-04-12 05:59 | NUR ---
Called [facility] with updates on morning lab values.
[2020-04-12 06:14] LABS: ANISOCYTOSIS 2+; BAND 43 % (0-10); EOSINOPHIL 7 % (0-4); LYMPHOCYTE 5 % (20.0-51.0); NEUTROPHILS 44 % (42.0-75.2); PLATELET ESTIMATE NORMAL (NORMAL)
--- NOTE | 2020-04-12 08:18 | NUR ---
Dr. Szymanski and Dr. Avitia at bedside for exams and reflex testing.
--- NOTE | 2020-04-12 08:30 | NUR ---
[facility] staff here, introductions made and updates given. (Massiel FORD and [facility]).
[2020-04-12 08:43] LABS: ARTERIAL BLD GAS O2 SATURATION 92.4 % (92-100); ARTERIAL BLD GAS TCO2 CT 18.9; ARTERIAL BLOOD GAS BASE EXCESS -6.2 (-2-2); ARTERIAL BLOOD GAS HCO3 17.9 meq/L (22-26); ARTERIAL BLOOD GAS PCO2 30.4 mmHg (35-45); ARTERIAL BLOOD GAS PO2 79.7 mmHg (80-100); ARTERIAL BLOOD GAS pH 7.39 (7.35-7.45)
--- NOTE | 2020-04-12 09:10 | NUR ---
Apnea test start time now. Dr. Szymanski, RT, MCorona Watson RN and this RN at bedside. 0917-Apnea test aborted at this time. SpO2 down to 85%. 917-ABG drawn and patient placed back on ventilator.
[2020-04-12 09:22] LABS: ARTERIAL BLD GAS TCO2 CT 22.5; ARTERIAL BLOOD GAS BASE EXCESS -7.7 (-2-2); ARTERIAL BLOOD GAS HCO3 20.7 meq/L (22-26); ARTERIAL BLOOD GAS PO2 67.6 mmHg (80-100); ARTERIAL BLOOD GAS pH 7.17 (7.35-7.45)
--- NOTE | 2020-04-12 09:45 | NUR ---
Time of brain = 0945. Dr. Szymanski with family (, mom and dad) to discuss test results. This Gifty FORD RN and Kaur DALEY there for support. Questions answered. Family to bedside to see patient, emotional support provided.
--- NOTE | 2020-04-12 10:00 | NUR ---
Care turned over to [facility] at this time.
--- NOTE | 2020-04-12 11:52 | NUR ---
Family is working with [facility] now. Given comfort quilt with expression of our support and concern at this time of loss.
--- NOTE | 2020-04-12 12:30 | NUR ---
here to check on patient status before leaving. Updates given and POC reviewed, denies questions at this time. Encouraged to call with any questions or updates.
[2020-04-12 13:08] LABS: ARTERIAL BLD GAS O2 SATURATION 89.3 % (92-100); ARTERIAL BLD GAS TCO2 CT 18.6; ARTERIAL BLOOD GAS BASE EXCESS -7.2 (-2-2); ARTERIAL BLOOD GAS HCO3 17.6 meq/L (22-26); ARTERIAL BLOOD GAS PCO2 32.3 mmHg (35-45); ARTERIAL BLOOD GAS pH 7.35 (7.35-7.45)
[2020-04-12 13:49] LABS: ALBUMIN 2.8 gm/dL (3.5-5.0); BILIRUBIN UNCONJUGATED 0.4 mg/dL (0.0-1.1); BILIRUBIN,DIRECT 0.1 mg/dL (0.0-0.4); BILIRUBIN,TOTAL 0.5 mg/dL (0.0-1.0); TOTAL PROTEIN 5.4 gm/dL (6.4-8.2)
[2020-04-12 13:58] LABS: MEAN CELL VOLUME 81 fl (80.0-100.0); MEAN CORPUSCULAR HGB CONC 28 g/dl (33.0-37.0); MEAN PLATELET VOLUME 11.6 fl (7.4-10.4); PLATELET COUNT 193 K/mm3 (130-400); RED BLOOD COUNT 3.46 M/mm3 (4.10-5.30); REDCELL DISTRIBUTION WIDTH-CV 21.2 % (11.5-14.5)
[2020-04-12 13:59] LABS: MAGNESIUM 1.5 mg/dL (1.6-2.3)
[2020-04-12 14:00] LABS: INR 1.6 (0.8-3.0); PROTHROMBIN TIME 18.5 SECONDS (9.7-12.8)
--- NOTE | 2020-04-12 14:00 | NUR ---
To [facility] for testing with RNx2 and RT. 1502 - Returned from [facility]. Personal cares provided and linens changed.
[2020-04-12 14:03] LABS: PARTIAL THROMBOPLASTIN TIME 28.3 SECONDS (26.0-37.0)
[2020-04-12 14:18] LABS: HEMATOCRIT 27.9 % (37.0-47.0); HEMOGLOBIN 7.9 g/dl (12.5-16.0); MEAN CORPUSCULAR HEMOGLOBIN 23 pg (27.0-31.0)
[2020-04-12 14:22] LABS: TROPONIN-I 33.8 ng/mL (0.000-0.035)
[2020-04-12 14:50] LABS: ANISOCYTOSIS 2+; BAND 14 % (0-10); EOSINOPHIL 2 % (0-4); HYPOCHROMIA 3+; LYMPHOCYTE 5 % (20.0-51.0); NEUTROPHILS 80 % (42.0-75.2); PLATELET ESTIMATE NORMAL (NORMAL)
[2020-04-12 14:51] LABS: TOXIC GRANULATION PRESENT
[2020-04-12 15:22] LABS: CALCIUM 8.4 mg/dL (8.4-10.2); CREATININE, serum 0.79 (0.52-1.25); POTASSIUM 4.6 mmol/L (3.4-5.0)
[2020-04-12 15:37] LABS: COLLECTION METHOD CATHETER
[2020-04-12 15:43] LABS: PH 5 (5-8); SQUAMOUS EPITHELIAL None Seen /hpf; URINE APPEARANCE Hazy; URINE BACTERIA Rare /hpf; URINE BILIRUBIN Negative (NEGATIVE); URINE BLOOD 2+ (NEGATIVE); URINE COLOR Yellow; URINE GLUCOSE Negative (NEGATIVE); URINE KETONE Negative (NEGATIVE); URINE LEUKOCYTE ESTERASE Negative (NEGATIVE); URINE NITRATE Negative (NEGATIVE); URINE PROTEIN(semi-quant) 1+ (NEGATIVE); URINE RBC 20-50 /hpf; URINE WBC 20-50 /hpf
--- NOTE | 2020-04-12 19:00 | NUR ---
RECIEVED BEDSIDE REPORT FROM BRIGIDA FORD. JERAMY FORD FROM [facility] AT BEDSIDE WELL. ALL LINES AND PUMPS VERIFIED.
[2020-04-12 19:11] LABS: MEAN CELL VOLUME 79 fl (80.0-100.0); MEAN CORPUSCULAR HGB CONC 28 g/dl (33.0-37.0); MEAN PLATELET VOLUME 11.4 fl (7.4-10.4); PLATELET COUNT 158 K/mm3 (130-400); RED BLOOD COUNT 3.11 M/mm3 (4.10-5.30); REDCELL DISTRIBUTION WIDTH-CV 21.1 % (11.5-14.5)
[2020-04-12 19:22] LABS: ALBUMIN 3.1 gm/dL (3.5-5.0); TOTAL PROTEIN 5.5 gm/dL (6.4-8.2)
[2020-04-12 19:25] LABS: INR 1.7 (0.8-3.0); PARTIAL THROMBOPLASTIN TIME 29.2 SECONDS (26.0-37.0)
[2020-04-12 19:40] LABS: TROPONIN-I 19.6 ng/mL (0.000-0.035)
--- NOTE | 2020-04-12 19:45 | NUR ---
PRONED PT WITH ASSIST OF JERAMY RN, TERESA ACADEMIC RECORDS SPECIALIST, DANIELLE ACADEMIC RECORDS SPECIALIST. PT TOLERATED WELL. LINES REVERIFIED. ALL GTT TITRATIONS ARE PER [facility] RECOMMENDATIONS.
[2020-04-12 19:55] LABS: BILIRUBIN UNCONJUGATED 0.4 mg/dL (0.0-1.1); BILIRUBIN,DIRECT 0.2 mg/dL (0.0-0.4); BILIRUBIN,TOTAL 0.6 mg/dL (0.0-1.0)
[2020-04-12 20:06] LABS: HEMATOCRIT 24.6 % (37.0-47.0); HEMOGLOBIN 6.9 g/dl (12.5-16.0); MEAN CORPUSCULAR HEMOGLOBIN 22 pg (27.0-31.0)
[2020-04-12 20:20] LABS: ANISOCYTOSIS 2+; BAND 18 % (0-10); HYPOCHROMIA 3+; LYMPHOCYTE 1 % (20.0-51.0); METAMYELOCYTE 1 % (0-0); MICROCYTOSIS 1+; NEUTROPHILS 80 % (42.0-75.2); PLATELET ESTIMATE NORMAL (NORMAL)
[2020-04-12 21:39] LABS: GAMMA GLUTAMYL TRANSPEPTIDASE 115 U/L (3-36)
--- NOTE | 2020-04-12 22:54 | NUR ---
TURNED PATIENT PRONE WITH TWO RN'S. ETT STILL IN PLACE AND BILATERAL BREATH SOUNDS ARE HEARD.
[2020-04-13] VITALS (811 sets, daily range): BP systolic 96–185; BP diastolic 59–125; PULSE 94–119; TEMP 36.6–37.2; O2SAT 76–100
--- NOTE | 2020-04-13 | NUR ---
ASSESSMENT COMPLETED AT THIS TIME. NO CHANGES TO PATIENT STATUS. ALL GTT TITRATIONS ARE COMPLETED PER [facility] NURSE RECOMMENDATIONS - JERAMY FORD.
--- NOTE | 2020-04-13 | NUR ---
AT 2200 ORGAN DONOR RN CHANGED PATIENTS VENT PEEP TO 8, ABG REVEALVED THAT THE PATIENT HAD A HIGH PO2.
[2020-04-13 00:18] LABS: INR 1.6 (0.8-3.0); MEAN CELL VOLUME 80 fl (80.0-100.0); MEAN CORPUSCULAR HGB CONC 29 g/dl (33.0-37.0); MEAN PLATELET VOLUME 11.7 fl (7.4-10.4); PLATELET COUNT 131 K/mm3 (130-400); RED BLOOD COUNT 2.91 M/mm3 (4.10-5.30); REDCELL DISTRIBUTION WIDTH-CV 20.5 % (11.5-14.5)
[2020-04-13 00:22] LABS: ALBUMIN 3.5 gm/dL (3.5-5.0); BILIRUBIN,TOTAL 0.6 mg/dL (0.0-1.0); MAGNESIUM 1.9 mg/dL (1.6-2.3); PHOSPHOROUS 4.6 mg/dL (2.5-4.5); TOTAL PROTEIN 5.8 gm/dL (6.4-8.2)
[2020-04-13 00:27] LABS: HEMATOCRIT 23.4 % (37.0-47.0); HEMOGLOBIN 6.8 g/dl (12.5-16.0); MEAN CORPUSCULAR HEMOGLOBIN 23 pg (27.0-31.0)
[2020-04-13 00:41] LABS: TROPONIN-I 16.5 ng/mL (0.000-0.035)
[2020-04-13 01:12] LABS: BILIRUBIN UNCONJUGATED 0.3 mg/dL (0.0-1.1)
[2020-04-13 01:13] LABS: BILIRUBIN,DIRECT 0.3 mg/dL (0.0-0.4)
[2020-04-13 01:32] LABS: ANISOCYTOSIS 2+; BAND 47 % (0-10); EOSINOPHIL 1 % (0-4); LYMPHOCYTE 2 % (20.0-51.0); METAMYELOCYTE 5 % (0-0); NEUTROPHILS 41 % (42.0-75.2); PLATELET ESTIMATE NORMAL (NORMAL)
[2020-04-13 01:33] LABS: HYPOCHROMIA 1+
--- NOTE | 2020-04-13 05:37 | NUR ---
ORGAN DONATION RN CHANGED RATE TO 14 AND PEEP TO 10.
--- NOTE | 2020-04-13 06:02 | NUR ---
changed rate to 14 at 0425, peep lowered to 5 at 0535
[2020-04-13 06:22] LABS: MEAN CELL VOLUME 79 fl (80.0-100.0); MEAN CORPUSCULAR HGB CONC 30 g/dl (33.0-37.0); MEAN PLATELET VOLUME 11.6 fl (7.4-10.4); PLATELET COUNT 123 K/mm3 (130-400); RED BLOOD COUNT 3.16 M/mm3 (4.10-5.30); REDCELL DISTRIBUTION WIDTH-CV 19.7 % (11.5-14.5)
[2020-04-13 06:23] LABS: HEMATOCRIT 25.1 % (37.0-47.0); HEMOGLOBIN 7.5 g/dl (12.5-16.0); MEAN CORPUSCULAR HEMOGLOBIN 24 pg (27.0-31.0)
[2020-04-13 06:36] LABS: ALBUMIN 3.1 gm/dL (3.5-5.0); BILIRUBIN UNCONJUGATED 0.4 mg/dL (0.0-1.1); BILIRUBIN,DIRECT 0.2 mg/dL (0.0-0.4); BILIRUBIN,TOTAL 0.7 mg/dL (0.0-1.0); CALCIUM 8.6 mg/dL (8.4-10.2); CREATININE, serum 0.63 (0.52-1.25); POTASSIUM 4.9 mmol/L (3.4-5.0); TOTAL PROTEIN 5.5 gm/dL (6.4-8.2)
[2020-04-13 06:42] LABS: INR 1.6 (0.8-3.0); PROTHROMBIN TIME 18.5 SECONDS (9.7-12.8)
[2020-04-13 06:44] LABS: PARTIAL THROMBOPLASTIN TIME 33.1 SECONDS (26.0-37.0)
[2020-04-13 06:54] LABS: MAGNESIUM 1.8 mg/dL (1.6-2.3); PHOSPHOROUS 4.2 mg/dL (2.5-4.5)
[2020-04-13 07:10] LABS: TROPONIN-I 12.7 ng/mL (0.000-0.035)
--- NOTE | 2020-04-13 07:25 | NUR ---
Report received from LILIANA Cruz. [facility] RN, Massiel, continues to provide guidance over care from [facility] protocols.
[2020-04-13 08:36] LABS: BAND 20 % (0-10); LYMPHOCYTE 3 % (20.0-51.0); NEUTROPHILS 74 % (42.0-75.2)
[2020-04-13 08:37] LABS: ANISOCYTOSIS 4+; HYPOCHROMIA 1+; OVALOCYTES 1+
--- NOTE | 2020-04-13 08:45 | NUR ---
[facility] RN shift change. LILIANA Rankin reports off to LILIANA Cantu.
--- NOTE | 2020-04-13 10:30 | NUR ---
Bronchoscopy performed at bedside by LILIANA Cantu for [facility]. Washings sent to lab.
[2020-04-13 12:31] LABS: MEAN CELL VOLUME 81 fl (80.0-100.0); MEAN CORPUSCULAR HGB CONC 30 g/dl (33.0-37.0); PLATELET COUNT 105 K/mm3 (130-400); RED BLOOD COUNT 2.94 M/mm3 (4.10-5.30); REDCELL DISTRIBUTION WIDTH-CV 19.9 % (11.5-14.5)
[2020-04-13 12:38] LABS: HEMATOCRIT 23.7 % (37.0-47.0); MEAN CORPUSCULAR HEMOGLOBIN 24 pg (27.0-31.0)
[2020-04-13 12:42] LABS: ALANINE AMINOTRANSFERASE 36 U/L (4-34); ALBUMIN 2.9 gm/dL (3.5-5.0); ALKALINE PHOSPHATASE 106 U/L (50-136); AST,SGOT 167 U/L (15-37); BILIRUBIN,TOTAL 0.6 mg/dL (0.0-1.0); LIPASE 72 U/L (23-300); MAGNESIUM 2.2 mg/dL (1.6-2.3); PHOSPHOROUS 3.6 mg/dL (2.5-4.5)
[2020-04-13 12:43] LABS: AMYLASE < 30 U/L (30-110)
[2020-04-13 12:52] LABS: LACTATE DEHYDROGENASE 2473 U/L (313-618)
[2020-04-13 12:56] LABS: INR 1.6 (0.8-3.0); PROTHROMBIN TIME 17.4 SECONDS (9.7-12.8)
[2020-04-13 13:09] LABS: PATHOLOGY DIFF REVIEW OK
[2020-04-13 13:14] LABS: BILIRUBIN UNCONJUGATED 0.4 mg/dL (0.0-1.1); BILIRUBIN,DIRECT 0.2 mg/dL (0.0-0.4)
[2020-04-13 14:07] LABS: ANISOCYTOSIS 4+; BAND 19 % (0-10); LYMPHOCYTE 7 % (20.0-51.0); NEUTROPHILS 71 % (42.0-75.2)
[2020-04-13 14:08] LABS: HYPOCHROMIA 1+; MICROCYTOSIS 1+; PLATELET ESTIMATE NORMAL (NORMAL)
[2020-04-13 18:02] LABS: MEAN CELL VOLUME 81 fl (80.0-100.0); MEAN CORPUSCULAR HGB CONC 29 g/dl (33.0-37.0); MEAN PLATELET VOLUME 10.9 fl (7.4-10.4); PLATELET COUNT 96 K/mm3 (130-400); RED BLOOD COUNT 2.77 M/mm3 (4.10-5.30); REDCELL DISTRIBUTION WIDTH-CV 19.8 % (11.5-14.5)
[2020-04-13 18:05] LABS: HEMATOCRIT 22.5 % (37.0-47.0); HEMOGLOBIN 6.6 g/dl (12.5-16.0); MEAN CORPUSCULAR HEMOGLOBIN 24 pg (27.0-31.0)
[2020-04-13 18:11] LABS: INR 1.5 (0.8-3.0); PROTHROMBIN TIME 17.2 SECONDS (9.7-12.8)
[2020-04-13 18:12] LABS: PARTIAL THROMBOPLASTIN TIME 34.2 SECONDS (26.0-37.0)
[2020-04-13 18:22] LABS: ALANINE AMINOTRANSFERASE 33 U/L (4-34); ALBUMIN 3.2 gm/dL (3.5-5.0); ALKALINE PHOSPHATASE 113 U/L (50-136); AST,SGOT 142 U/L (15-37); LIPASE 76 U/L (23-300); PHOSPHOROUS 3.4 mg/dL (2.5-4.5); TOTAL PROTEIN 5.3 gm/dL (6.4-8.2)
[2020-04-13 18:36] LABS: ANISOCYTOSIS 3+; BAND 30 % (0-10); HYPOCHROMIA 2+; LYMPHOCYTE 5 % (20.0-51.0); MYELOCYTE 4 % (0-0); NEUTROPHILS 58 % (42.0-75.2); POIKILOCYTOSIS 1+
[2020-04-13 18:37] LABS: OVALOCYTES 1+
[2020-04-13 18:48] LABS: BILIRUBIN UNCONJUGATED 0.4 mg/dL (0.0-1.1); BILIRUBIN,DIRECT 0.2 mg/dL (0.0-0.4); BILIRUBIN,TOTAL 0.6 mg/dL (0.0-1.0)
[2020-04-13 18:51] LABS: AMYLASE < 30 U/L (30-110); LACTATE DEHYDROGENASE 2243 U/L (313-618)
--- NOTE | 2020-04-13 19:10 | NUR ---
Report to LILIANA Cruz. Patient turned to prone position at this time. Bedside shift report completed with line/tube verification.
--- NOTE | 2020-04-13 19:33 | NUR ---
PLATEAU PRESSURE AND INTRINSIC PEEP MEASURMENTS NOT DONE. PT IS BEING MONITORED FOR ORGAN DONATION.
[2020-04-14] VITALS (436 sets, daily range): BP systolic 96–101; BP diastolic 57–62; PULSE 108–114; TEMP 36.9–37.2; O2SAT 95–100
[2020-04-14 00:24] LABS: ARTERIAL BLD GAS O2 SATURATION 97.9 % (92-100); ARTERIAL BLD GAS TCO2 CT 20.6; ARTERIAL BLOOD GAS HCO3 19.4 meq/L (22-26); ARTERIAL BLOOD GAS PCO2 37.9 mmHg (35-45); ARTERIAL BLOOD GAS pH 7.33 (7.35-7.45)
[2020-04-14 00:25] LABS: ARTERIAL BLOOD GAS PO2 218.6 mmHg (80-100)
[2020-04-14 04:39] LABS: MEAN CELL VOLUME 83 fl (80.0-100.0); MEAN CORPUSCULAR HGB CONC 30 g/dl (33.0-37.0); MEAN PLATELET VOLUME 11.6 fl (7.4-10.4); PLATELET COUNT 85 K/mm3 (130-400); RED BLOOD COUNT 3.08 M/mm3 (4.10-5.30); REDCELL DISTRIBUTION WIDTH-CV 19.7 % (11.5-14.5)
[2020-04-14 04:45] LABS: MAGNESIUM 1.8 mg/dL (1.6-2.3); PHOSPHOROUS 3.5 mg/dL (2.5-4.5); TOTAL PROTEIN 6.1 gm/dL (6.4-8.2)
[2020-04-14 04:47] LABS: HEMATOCRIT 25.6 % (37.0-47.0); HEMOGLOBIN 7.7 g/dl (12.5-16.0); MEAN CORPUSCULAR HEMOGLOBIN 25 pg (27.0-31.0)
[2020-04-14 04:48] LABS: INR 1.5 (0.8-3.0); PROTHROMBIN TIME 16.6 SECONDS (9.7-12.8)
[2020-04-14 04:50] LABS: PARTIAL THROMBOPLASTIN TIME 35.6 SECONDS (26.0-37.0)
[2020-04-14 04:58] LABS: TROPONIN-I 9.11 ng/mL (0.000-0.035)
[2020-04-14 05:32] LABS: BILIRUBIN UNCONJUGATED 0.7 mg/dL (0.0-1.1); BILIRUBIN,DIRECT 1.2 mg/dL (0.0-0.4)
[2020-04-14 06:30] LABS: ANISOCYTOSIS 1+; BAND 34 % (0-10); HYPOCHROMIA 3+; LYMPHOCYTE 9 % (20.0-51.0); METAMYELOCYTE 2 % (0-0); NEUTROPHILS 52 % (42.0-75.2); PLATELET ESTIMATE DECREASED (NORMAL)
[2020-04-14 06:32] LABS: BURR CELLS 1+
[2020-04-14 06:33] LABS: ALANINE AMINOTRANSFERASE 30 U/L (4-34); ALBUMIN 3.9 gm/dL (3.5-5.0); ALKALINE PHOSPHATASE 163 U/L (50-136); AST,SGOT 116 U/L (15-37); BILIRUBIN,TOTAL 2.4 mg/dL (0.0-1.0); LACTATE DEHYDROGENASE 2056 U/L (313-618); LIPASE 62 U/L (23-300); MAGNESIUM 1.8 mg/dL (1.6-2.3); PHOSPHOROUS 2.6 mg/dL (2.5-4.5); TOTAL PROTEIN 5.9 gm/dL (6.4-8.2)
[2020-04-14 06:34] LABS: AMYLASE < 30 U/L (30-110); MEAN CELL VOLUME 85 fl (80.0-100.0); MEAN CORPUSCULAR HGB CONC 30 g/dl (33.0-37.0); MEAN PLATELET VOLUME 11.6 fl (7.4-10.4); PLATELET COUNT 78 K/mm3 (130-400); RED BLOOD COUNT 3.35 M/mm3 (4.10-5.30); REDCELL DISTRIBUTION WIDTH-CV 19.2 % (11.5-14.5)
[2020-04-14 06:38] LABS: OVALOCYTES 1+; SCHISTOCYTES 1+
[2020-04-14 06:44] LABS: INR 1.5 (0.8-3.0); PROTHROMBIN TIME 16.6 SECONDS (9.7-12.8)
[2020-04-14 06:46] LABS: PARTIAL THROMBOPLASTIN TIME 35.5 SECONDS (26.0-37.0)
--- NOTE | 2020-04-14 06:54 | NUR ---
PT IS AN ORGAN DONOR AND IS NOT GOING TO BE WEANED. PT IS ON DOCUMENTED SETTINGS.
[2020-04-14 07:02] LABS: BILIRUBIN UNCONJUGATED 0.7 mg/dL (0.0-1.1); BILIRUBIN,DIRECT 1.7 mg/dL (0.0-0.4)
[2020-04-14 07:24] LABS: HEMATOCRIT 28.3 % (37.0-47.0); HEMOGLOBIN 8.5 g/dl (12.5-16.0); MEAN CORPUSCULAR HEMOGLOBIN 25 pg (27.0-31.0)
[2020-04-14 07:38] LABS: ANISOCYTOSIS 2+; BAND 36 % (0-10); EOSINOPHIL 4 % (0-4); HYPOCHROMIA 3+; LYMPHOCYTE 14 % (20.0-51.0); METAMYELOCYTE 2 % (0-0); NEUTROPHILS 41 % (42.0-75.2); PLATELET ESTIMATE DECREASED (NORMAL)
[2020-04-14 07:42] LABS: BURR CELLS 1+
[2020-04-14 07:46] LABS: SCHISTOCYTES 1+
[2020-04-14 11:08] LABS: MEAN CELL VOLUME 84 fl (80.0-100.0); MEAN CORPUSCULAR HGB CONC 30 g/dl (33.0-37.0); MEAN PLATELET VOLUME 10.2 fl (7.4-10.4); PLATELET COUNT 67 K/mm3 (130-400); RED BLOOD COUNT 3.34 M/mm3 (4.10-5.30); REDCELL DISTRIBUTION WIDTH-CV 19.4 % (11.5-14.5)
[2020-04-14 11:25] LABS: HEMATOCRIT 28.2 % (37.0-47.0); HEMOGLOBIN 8.4 g/dl (12.5-16.0); MEAN CORPUSCULAR HEMOGLOBIN 25 pg (27.0-31.0)
[2020-04-14 11:27] LABS: ALANINE AMINOTRANSFERASE 26 U/L (4-34); ALBUMIN 3.1 gm/dL (3.5-5.0); ALKALINE PHOSPHATASE 158 U/L (50-136); AST,SGOT 104 U/L (15-37); BILIRUBIN UNCONJUGATED 0.6 mg/dL (0.0-1.1); BILIRUBIN,DIRECT 1.6 mg/dL (0.0-0.4); BILIRUBIN,TOTAL 2.2 mg/dL (0.0-1.0); TOTAL PROTEIN 5.1 gm/dL (6.4-8.2)
[2020-04-14 11:28] LABS: INR 1.6 (0.8-3.0); PROTHROMBIN TIME 18.3 SECONDS (9.7-12.8)
[2020-04-14 11:30] LABS: PARTIAL THROMBOPLASTIN TIME 39.5 SECONDS (26.0-37.0)
--- NOTE | 2020-04-14 11:40 | NUR ---
Dr. Moreno here for bedside liver biopsy
--- NOTE | 2020-04-14 11:58 | NUR ---
Pathologist at bedside for sample.
[2020-04-14 12:11] LABS: EOSINOPHIL 8 % (0-4); METAMYELOCYTE 1 % (0-0); MYELOCYTE 1 % (0-0); NEUTROPHILS 34 % (42.0-75.2); NUCLEATED RED BLOOD CELL 4 (0-6)
[2020-04-14 12:12] LABS: BAND 33 % (0-10); LYMPHOCYTE 18 % (20.0-51.0)
[2020-04-14 12:13] LABS: ANISOCYTOSIS 2+; PLATELET ESTIMATE DECREASED (NORMAL)
[2020-04-14 12:23] LABS: HYPOCHROMIA 3+
[2020-04-14 12:25] LABS: OVALOCYTES 1+
[2020-04-14 12:35] LABS: LACTATE DEHYDROGENASE 1839 U/L (313-618); LIPASE 58 U/L (23-300); MAGNESIUM 1.7 mg/dL (1.6-2.3); PHOSPHOROUS 2.4 mg/dL (2.5-4.5)
[2020-04-14 12:52] LABS: AMYLASE < 30 U/L (30-110)
[2020-04-14 16:22] LABS: ALBUMIN 3.5 gm/dL (3.5-5.0); BILIRUBIN UNCONJUGATED 0.8 mg/dL (0.0-1.1); BILIRUBIN,TOTAL 3.8 mg/dL (0.0-1.0); TOTAL PROTEIN 5.7 gm/dL (6.4-8.2)
[2020-04-14 16:25] LABS: INR 1.6 (0.8-3.0); PROTHROMBIN TIME 18.2 SECONDS (9.7-12.8)
[2020-04-14 16:27] LABS: PARTIAL THROMBOPLASTIN TIME 28.7 SECONDS (26.0-37.0)
--- NOTE | 2020-04-14 16:30 | NUR ---
Mom and Dad at bedside to see patient. Emotional support provided, very appreciative of care. Belongings sent with parents. not coming to see patient before surgery
[2020-04-14 16:52] LABS: COLLECTION METHOD CATHETER
[2020-04-14 17:07] LABS: MUCOUS Present /lpf; PH 5 (5-8); SQUAMOUS EPITHELIAL 0-2 /hpf; URINE APPEARANCE Cloudy; URINE BACTERIA Rare /hpf; URINE BILIRUBIN Negative (NEGATIVE); URINE BLOOD 3+ (NEGATIVE); URINE COLOR Amber; URINE GLUCOSE Negative (NEGATIVE); URINE KETONE Negative (NEGATIVE); URINE LEUKOCYTE ESTERASE 2+ (NEGATIVE); URINE NITRATE Negative (NEGATIVE); URINE PROTEIN(semi-quant) 1+ (NEGATIVE); URINE RBC >50 /hpf; URINE WBC >50 /hpf
--- NOTE | 2020-04-14 17:45 | NUR ---
To OR via bed with OR staff and [facility] team for organ recovery.
[2020-04-14 18:57] LABS: MAGNESIUM 1.6 mg/dL (1.6-2.3); PHOSPHOROUS 4.2 mg/dL (2.5-4.5)
[2020-04-14 18:59] LABS: TROPONIN-I 12.2 ng/mL (0.000-0.035)
--- NOTE | 2020-04-14 21:00 | NUR ---
PT D/C'ED WITH [facility]. NOTIFICATION SIGNED AND PLACED BACK ON CHART.
[2020-04-15 16:34] LABS: CK total - for Isoenzymes 690 U/L (26 - 192)
--- NOTE | 2020-04-18 11:15 | NUR ---
Late entry: Called maori liaison adviser, Dr. Eric, Friday04/12/20 at 1000. Discused patient's medical history, current status, brain . Dr. Eric stated that patient is not a maori liaison adviser's case due to case not be a homicide, suicide or suspicious .
== END 2020-04-14 21:00 | disposition expired | DRG 286 ==
LOC: COL.ER 07:15 → ICU 09:40
PROVIDERS: Family Medicine; Internal Medicine Pulmonary Disease; ADMIT Hospitalist
PROC: 4A023N7 Measurement of Cardiac Sampling and Pressure, Left Heart, Percutaneous Approach (ICD-10-PCS; principal; 2020-04-10)
PROC: B2111ZZ Fluoroscopy of Multiple Coronary Arteries using Low Osmolar Contrast (ICD-10-PCS; 2020-04-10)
PROC: 05HM33Z Insertion of Infusion Device into Right Internal Jugular Vein, Percutaneous Approach (ICD-10-PCS; 2020-04-10)
PROC: 0BH17EZ Insertion of Endotracheal Airway into Trachea, Via Natural or Artificial Opening (ICD-10-PCS; 2020-04-10)
PROC: 5A1945Z Respiratory Ventilation, 24-96 Consecutive Hours (ICD-10-PCS; 2020-04-10)
DX: I46.9 Cardiac arrest, cause unspecified (principal); G93.6 Cerebral edema; J96.90 Respiratory failure, unspecified, unspecified whether with hypoxia or hypercapnia; K72.00 Acute and subacute hepatic failure without coma; E87.2 Acidosis; E87.0 Hyperosmolality and hypernatremia; G93.1 Anoxic brain damage, not elsewhere classified; E66.9 Obesity, unspecified; F41.9 Anxiety disorder, unspecified; F32.9 Major depressive disorder, single episode, unspecified; F90.9 Attention-deficit hyperactivity disorder, unspecified type; Z66 Do not resuscitate; Z51.5 Encounter for palliative care; D72.829 Elevated white blood cell count, unspecified; I49.01 Ventricular fibrillation; E87.8 Other disorders of electrolyte and fluid balance, not elsewhere classified; E87.6 Hypokalemia; Z20.828 Contact with and (suspected) exposure to other viral communicable diseases; D50.9 Iron deficiency anemia, unspecified; F10.10 Alcohol abuse, uncomplicated; Z93.1 Gastrostomy status; Z98.84 Bariatric surgery status
CPT/HCPCS: 99223-AI; 99232-AI; 99233-AI; 99239; J0171; J0282; J1160; J1644; J1815; J1940; J2310; J2543; J2597; J2704; J3370; J3475; J3480; J7030; J7040; J7050; J7060; J7120; J7131; P9016; P9047